=== PATIENT | male | born 1955 | race American Indian/Alaskan Native ===

== ENCOUNTER 2017-09-24 07:38 | Inpatient (IN) | payer MEDICARE ==
[~2017-09-24] VITALS: Ht 193 cm; Wt 76.4 kg
[~2017-09-24 07:38] MED LIST: ALBIPROI INH; ALBU90OI6 INH; ALPR.25 PO; ASPI325 PO; AZIT250 PO; BENZ100A PO; COMBIVENT RESPIM4 GM IH; DILT120 PO; DULERA 200 MCG/13 GM INH; FLUSAL2505 INH; GUAI600T33 PO; HYDACE7.5 PO; LEVFLO500 PO; NAPR500 PO; NICO21TP TOP; OXYC15ER PO; OXYC1TAB11 PO; OXYC5 PO; PRED10 PO; PRED20 PO; Roxicodone5 MG PO; TRAZ100 PO; Toprol Xl25 MG PO; Ventolin5 MG/1 ML INH
[2017-09-24 08:07] LABS: BASOPHILS ABSOLUTE AUTO 0.05 K/mm3 (0.00-0.23); BASOPHILS PERCENT AUTO 1 % (0-2); EOSINOPHILS ABSOLUTE AUTO 0.84 K/mm3 (0.00-0.68); EOSINOPHILS PERCENT AUTO 10 % (0-6); Hematocrit 46.1 % (37.0-53.0); Hemoglobin 15.4 g/dL (13.5-17.5); IMMATURE GRAN ABSOLUTE AUTO 0.02 K/mm3 (0.00-0.10); IMMATURE GRAN PERCENT AUTO 0 % (0-1); LYMPHOCYTES ABSOLUTE AUTO 1.46 K/mm3 (0.84-5.20); LYMPHOCYTES PERCENT AUTO 18 % (21-46); MONOCYTES ABSOLUTE AUTO 0.67 K/mm3 (0.16-1.47); MONOCYTES PERCENT AUTO 8 % (4-13); Mean Corpuscular HGB 31.7 pg (26.0-34.0); Mean Corpuscular HGB Conc 33.4 g/dL (31.5-36.5); Mean Corpuscular Volume 95 fL (80-100); Mean Platelet Volume 10.1 fL (9.1-12.4); NEUTROPHILS ABSOLUTE AUTO 5.11 K/mm3 (1.96-9.15); NEUTROPHILS PERCENT AUTO 63 % (41-73); Platelet Count 168 K/mm3 (150-400); RDW Coefficient Variation 13.2 % (11.7-14.2); RDW Standard Deviation 46.5 fL (35.1-46.3); Red Blood Cell Count 4.86 M/mm3 (4.30-5.90); White Blood Cell Count 8.15 K/mm3 (4.00-11.30)
[2017-09-24 08:25] LABS: Alanine Aminotransfer (ALT/SGP 33 U/L (12-78); Albumin, Blood 3.7 g/dL (3.4-5.0); Albumin/Globulin Ratio 1.2 (0.8-1.8); Alk Phos 91 U/L (50-136); Anion Gap 9 mmol/L (6-16); Aspartate Aminotrans (AST/SGOT 34 U/L (12-37); Bilirubin, Total 0.5 mg/dL (0.1-1.0); Blood Urea Nitrogen 10 mg/dL (8-24); Bun/Creatinine Ratio 12.6 (12.0-20.0); CO2, Blood 25 mmol/L (21-32); Calcium, Blood 8.4 mg/dL (8.5-10.1); Chloride, Blood 106 mmol/L (98-108); Creatinine, Blood 0.79 mg/dL (0.60-1.20); Globulin, Blood 3.2 g/dL (2.2-4.0); Glomerular Filtration Rate >60 (60-); Glucose, Blood 102 mg/dL (70-99); Potassium, Blood 4.3 mmol/L (3.5-5.5); Sodium, Blood 140 mmol/L (136-145); Total Protein, Blood 6.9 g/dL (6.4-8.2)
[2017-09-28] MEDS ORDERED: DILTIAZEM ER360 MG PO (10:11)
[2017-09-28] MEDS ORDERED: DULERA 200 MCG/13 GM INH (10:12)
[2017-09-28] MEDS ORDERED: OXYC5 PO (10:13)
[2017-09-28] MEDS ORDERED: ACET325 PO (10:14)
[2017-09-28] MEDS ORDERED: BUSP10 PO (10:15)
[2017-09-28] MEDS ORDERED: TUMS200 MG PO (10:18)
[2017-09-28] MEDS ORDERED: LEVO750 PO (10:18)
[2017-09-28] MEDS ORDERED: NAPR500 PO (10:20)
[2017-09-28] MEDS ORDERED: PANT40 PO (10:23)
== END 2017-09-28 12:41 | disposition home or self-care (01) | DRG 193 ==
LOC: ER 07:38 → MEDS 10:39 → ENPENDDIS 09-28 10:01 → MEDS 09-28 12:41
PROVIDERS: Emergency Medicine
DX: J18.9 Pneumonia, unspecified organism (principal); J96.01 Acute respiratory failure with hypoxia; J44.1 Chronic obstructive pulmonary disease with (acute) exacerbation; J44.0 Chronic obstructive pulmonary disease with (acute) lower respiratory infection; Z99.81 Dependence on supplemental oxygen; Z87.891 Personal history of nicotine dependence; G89.4 Chronic pain syndrome; F43.10 Post-traumatic stress disorder, unspecified; I48.0 Paroxysmal atrial fibrillation; F41.0 Panic disorder [episodic paroxysmal anxiety]; F41.9 Anxiety disorder, unspecified; Z79.82 Long term (current) use of aspirin
CPT/HCPCS: 36415; 71045; 80053; 83880; 84484; 85025; 93005; 93010; 94640; 94644; 94760; 94761; 96374; 96375; 99285-25; J1650; J1956; J2060; J2920; J2930

== ENCOUNTER 2018-10-16 18:56 | Inpatient (IN) | payer MEDICARE ==
[~2018-10-16] VITALS: Ht 182.9 cm; Wt 102.9 kg
[~2018-10-16 18:56] MED LIST changes: +ACET325 PO; +BUSP10 PO; +DILTIAZEM ER360 MG PO; +LEVO750 PO; +PANT40 PO; -TRAZ100 PO; +TUMS200 MG PO
[2018-10-16 19:18] LABS: PCO2 Arterial 83.6 mmHg (35-45); PO2 Arterial 361 mmHg (80-100); pH Blood Arterial 7.12 (7.35-7.45)
[2018-10-16 19:30] LABS: BASOPHILS PERCENT AUTO 1 % (0-2); EOSINOPHILS ABSOLUTE AUTO 0.48 K/mm3 (0.00-0.68); EOSINOPHILS PERCENT AUTO 6 % (0-6); Hematocrit 45.3 % (37.0-53.0); Hemoglobin 13.1 g/dL (13.5-17.5); IMMATURE GRAN ABSOLUTE AUTO 0.02 K/mm3 (0.00-0.10); IMMATURE GRAN PERCENT AUTO 0 % (0-1); LYMPHOCYTES ABSOLUTE AUTO 3.38 K/mm3 (0.84-5.20); LYMPHOCYTES PERCENT AUTO 44 % (21-46); MONOCYTES ABSOLUTE AUTO 0.74 K/mm3 (0.16-1.47); MONOCYTES PERCENT AUTO 10 % (4-13); Mean Corpuscular HGB 24.6 pg (26.0-34.0); Mean Corpuscular HGB Conc 28.9 g/dL (31.5-36.5); Mean Corpuscular Volume 85 fL (80-100); Mean Platelet Volume 10.4 fL (9.1-12.4); NEUTROPHILS ABSOLUTE AUTO 3.05 K/mm3 (1.96-9.15); NEUTROPHILS PERCENT AUTO 39 % (41-73); Platelet Count 363 K/mm3 (150-400); RDW Coefficient Variation 15.5 % (11.7-14.2); RDW Standard Deviation 47.9 fL (35.1-46.3); Red Blood Cell Count 5.32 M/mm3 (4.30-5.90); White Blood Cell Count 7.77 K/mm3 (4.00-11.30)
[2018-10-16 19:45] LABS: Alanine Aminotransfer (ALT/SGP 29 U/L (12-78); Albumin, Blood 3.6 g/dL (3.4-5.0); Alk Phos 81 U/L (50-136); Anion Gap 3 mmol/L (6-16); Aspartate Aminotrans (AST/SGOT 21 U/L (12-37); Bilirubin, Total 0.2 mg/dL (0.1-1.0); Blood Urea Nitrogen 10 mg/dL (8-24); Bun/Creatinine Ratio 7.6 (12.0-20.0); CO2, Blood 28 mmol/L (21-32); Calcium, Blood 8.7 mg/dL (8.5-10.1); Chloride, Blood 110 mmol/L (98-108); Creatinine, Blood 1.31 mg/dL (0.60-1.20); Globulin, Blood 3.5 g/dL (2.2-4.0); Glomerular Filtration Rate 58 (60-); Glucose, Blood 162 mg/dL (70-99); Potassium, Blood 5.8 mmol/L (3.5-5.5); Sodium, Blood 141 mmol/L (136-145); Total Protein, Blood 7.1 g/dL (6.4-8.2); Troponin I <0.015 ng/mL (0.000-0.040)
[2018-10-16] MEDS ORDERED: Roxicodone15 MG PO (20:12)
[2018-10-16 21:12] LABS: U Amphetamine Screen Not Detected; U Barbituate Screen Not Detected; U Benzodiazapine Screen Not Detected; U Buprenorphine Screen Not Detected; U Cannabinoids Screen DETECTED; U Cocaine Screen Not Detected; U Methadone Screen Not Detected; U Methamphetamine Screen Not Detected; U Opiates Screen Not Detected; U Oxycodone Screen DETECTED; U Phencyclidine Screen Not Detected; U Propoxyphene Screen Not Detected
--- NOTE | 2018-10-16 22:15 | NUR ---
ADMIT RECEIVED FROM ER VIA GURNEY. INTUBATED- AC 18, TV 450, PEEP 5, FIO2 40%. RESP RATE MID-20s TO 30s. SEDATED WITH PROPOFOL AT 10MCG/KG/MIN. OPENS EYES TO STIMULI. MOVES EXTREMITIES, BUT NOT FOLLOWING COMMANDS AT THIS TIME. TEJAS, 2MM. BILATERAL SOFT WRIST RESTRAINTS IN PLACE TO PREVENT SELF-EXTUBATION. MONITOR SHOWS AFLUTTER, RATE 110-120s. UNABLE TO OBTAIN BP AT THIS TIME. TEMP 100.4F VIA CHAVIS TEMP PROBE. OG CLAMPED. CHAVIS PATENT AND DRAINING SCANT CLOUDY YELLOW URINE. SEE ADMIT ASSESSMENT FOR FULL ASSESSMENT.
[2018-10-16 22:59] LABS: PCO2 Arterial 45.7 mmHg (35-45); PO2 Arterial 96.2 mmHg (80-100); pH Blood Arterial 7.28 (7.35-7.45)
--- NOTE | 2018-10-16 23:15 | NUR ---
AGITATION/BP/CRITICAL LABS CALL TO BRIEN CARO NP, REGARDING INCREASED AGITATION- NEW ORDER RECEIVED FOR ATIVAN IV AT THIS TIME. ALSO NOTIFIED OF CONTINUED HYPOTENSION AND CRITICAL LACTIC ACID RESULT- NEW ORDER RECEIVED FOR FLUID BOLUS.
[2018-10-16 23:20] LABS: Source, Urine Catheter
[2018-10-16 23:24] LABS: Appearance, Urine Cloudy (Clear); Bilirubin, Urine Neg (Neg); Blood, Urine 1+ (Neg); Color, Urine Yellow (P-Yellow); Glucose Qualitative, Urine Neg (Neg); Ketones, Urine 1+ (Neg); Leukocyte Esterase, Urine Neg (Neg); Nitrite, Urine Neg (Neg); Protein, Urine 1+ (Neg); Specific Gravity, Urine 1.025 (1.003-1.022); Urobilinogen, Urine NORM (Normal)
[2018-10-16 23:32] LABS: Amorphous Heavy (0-Heavy); Bacteria Not Seen /hpf; Red Blood Cells, Urine 0-2 /hpf (0-2); Squamous Epithelial Cells Not Seen /hpf (Few); White Blood Cells, Urine 0-2 /hpf (0-5)
[2018-10-16 23:54] LABS: White Blood Cells Urine 0-2 /hpf (0-5)
[2018-10-17 00:39] LABS: Troponin I 0.102 ng/mL (0.000-0.040)
[2018-10-17 00:42] LABS: Thyroid Stimulating Hormone 0.871 uIU/mL (0.360-4.800)
[2018-10-17 00:48] LABS: Calcium, Blood 7.5 mg/dL (8.5-10.1); Creatinine, Blood 1.74 mg/dL (0.60-1.20); Potassium, Blood 7.2 mmol/L (3.5-5.5)
--- NOTE | 2018-10-17 01:01 | NUR ---
NARCAN NARCAN 0.4MG IV GIVEN AT THIS TIME PER ORDER. NO RESPONSE NOTED.
--- NOTE | 2018-10-17 01:43 | NUR ---
HYPOTENSION/CALL TO MD DR. TOMAS NOTIFIED OF CONTINUED HYPOTENSION, AFLUTTER RATE 50s, SCANT URINE OUTPUT, AND CRITICAL HIGH POTASSIUM. NEW ORDERS RECEIVED FOR DOPAMINE IVT AND FOR A LR 1L BOLUS X 1.
[2018-10-17 02:30] LABS: Adenovirus Not Detected (NOT DETECT); Bordetella pertussis Not Detected (NOT DETECT); Chlamydophila pneumoniae Not Detected (NOT DETECT); Coronavirus 229E Not Detected (NOT DETECT); Coronavirus HKU1 Not Detected (NOT DETECT); Coronavirus NL63 Not Detected (NOT DETECT); Coronavirus OC43 Not Detected (NOT DETECT); Human Metapneumovirus Not Detected (NOT DETECT); Human Rhinovirus/Enterovirus Not Detected (NOT DETECT); Influenza A Not Detected (NOT DETECT); Influenza A/2009-H1 Not Detected (NOT DETECT); Influenza A/H1 Not Detected (NOT DETECT); Influenza A/H3 Not Detected (NOT DETECT); Influenza B Not Detected (NOT DETECT); Mycoplasma pneumoniae Not Detected (NOT DETECT); Parainfluenza Virus 1 Not Detected (NOT DETECT); Parainfluenza Virus 2 Not Detected (NOT DETECT); Parainfluenza Virus 3 Not Detected (NOT DETECT); Parainfluenza Virus 4 Not Detected (NOT DETECT); Respiratory Syncytial Virus Not Detected (NOT DETECT)
[2018-10-17 05:01] LABS: PCO2 Arterial 43.2 mmHg (35-45); PO2 Arterial 80.7 mmHg (80-100)
[2018-10-17 05:38] LABS: BASOPHILS ABSOLUTE AUTO 0.01 K/mm3 (0.00-0.23); BASOPHILS PERCENT AUTO 0 % (0-2); EOSINOPHILS ABSOLUTE AUTO 0.02 K/mm3 (0.00-0.68); EOSINOPHILS PERCENT AUTO 0 % (0-6); Hematocrit 40.6 % (37.0-53.0); Hemoglobin 11.9 g/dL (13.5-17.5); IMMATURE GRAN ABSOLUTE AUTO 0.04 K/mm3 (0.00-0.10); IMMATURE GRAN PERCENT AUTO 1 % (0-1); LYMPHOCYTES ABSOLUTE AUTO 0.41 K/mm3 (0.84-5.20); LYMPHOCYTES PERCENT AUTO 7 % (21-46); MONOCYTES ABSOLUTE AUTO 0.17 K/mm3 (0.16-1.47); MONOCYTES PERCENT AUTO 3 % (4-13); Mean Corpuscular HGB 24.8 pg (26.0-34.0); Mean Corpuscular HGB Conc 29.3 g/dL (31.5-36.5); Mean Corpuscular Volume 85 fL (80-100); Mean Platelet Volume 10.1 fL (9.1-12.4); NEUTROPHILS PERCENT AUTO 89 % (41-73); Platelet Count 250 K/mm3 (150-400); RDW Coefficient Variation 15.6 % (11.7-14.2); RDW Standard Deviation 49.3 fL (35.1-46.3); Red Blood Cell Count 4.79 M/mm3 (4.30-5.90); White Blood Cell Count 6.15 K/mm3 (4.00-11.30)
[2018-10-17 06:11] LABS: Albumin, Blood 2.9 g/dL (3.4-5.0); Bilirubin, Total 0.6 mg/dL (0.1-1.0); Bun/Creatinine Ratio 9.9 (12.0-20.0); Calcium, Blood 7.9 mg/dL (8.5-10.1); Creatinine, Blood 1.51 mg/dL (0.60-1.20); Total Protein, Blood 5.9 g/dL (6.4-8.2)
--- NOTE | 2018-10-17 06:11 | NUR ---
SHIFT SUMMARY NO ACUTE CHANGES DURING NOC. REMAINS INTUBATED- AC 18, TV 450, PEEP 5, FIO2 40%. SEDATED WITH PROPOFOL BETWEEN 10-15MCG/KG/MIN DURING SHIFT. OPENS EYES TO VERBAL STIMULI. MOVES ALL EXTREMITIES, BUT NOT FOLLOWING COMMANDS. BILATERAL SOFT WRIST RESTRAINTS REMAIN IN PLACE TO PREVENT SELF-EXTUBATION. NOW INFUSING @ 15MCG/KG/MIN. MEDICATED WITH ATIVAN 1MG IV X 2 DOSES AN ADJUNCT TO SEDATION. REMAINS IN AFLUTTER, RATE 50-60s. BP STABLE WITH DOPAMINE @ 5MCG/KG/MIN. TMAX 100.4F. OG TO LIS WITH SCANT LIGHT BROWN DRAINAGE. CHAVIS PATENT AND DRAINING CLOUDY YELLOW URINE. PAS TO BLE. NS INFUSING @ 100CC/HR PER ORDER. WILL REPORT TO DAY SHIFT RN WHEN AVAILABLE.
--- NOTE | 2018-10-17 07:27 | NUR ---
ASSUMED CARE OF PT. PT IS SEDATED WITH PROPOFOL @ 15MCG/KG/MIN. PT STARTING TO BE AGITATED, PT DOES OPENS EYES TO VOICE. FOLLOWING A FEW SIMPLE COMMANDS. INCREASED PROPOFOL DRIP TO 20MCG/KG/MIN. HR IN THE 120s. DOPAMINE DRIP DECREASED FROM 5MCG/KG/MIN TO 4MCG/KG/MIN. PT IS VENTED AND INTUBATED.
--- NOTE | 2018-10-17 07:57 | NUR ---
DR. HERNANDEZ CAME BY TO SEE PATIENT. UPDATED HIM OF PT'S CONDITION. ORDERS RECEIVED.
--- NOTE | 2018-10-17 08:43 | NUR ---
PT SEEN BY DR. TOMAS, UPDATED HIM OF PT'S STATUS. DECREASED PROPOFOL DRIP TO 10MCG/KG/MIN DUE TO SBT WHICH WAS STARTED AT THIS TIME BY DR. TOMAS. 12/28 SETTINGS.
--- NOTE | 2018-10-17 08:53 | NUR ---
TURNED OFF PROPOFOL AT THIS TIME. STILL TOLERATING SBT. SORAYA RT WAS NOTIFIED ABOUT THE SBT.
--- NOTE | 2018-10-17 09:22 | NUR ---
SAGRARIO DINING ROOM CAPTAIN AT BEDSIDE DOING ECHOCARDIOGRAM. PT STILL ON SBT SLOWLY WAKING UP.
--- NOTE | 2018-10-17 10:06 | NUR ---
PT EXTUBATED @ 1000. PLACED OF 3 LPM NC. TOLERATING OFF THE VENT. RESTRAINTS DISCONTINUED.
--- NOTE | 2018-10-17 12:46 | NUR ---
PT WAS SEEN BY DR. SHOOK @ 3843. UPDATED HIM OF PT'S STATUS. [facility] PT IS ONLY ALLOWED ICE CHIPS FOR NOW UNTIL PT'S REC[facility]DS [facility] ARRIVES. POSSIBLE CATH TODAY. PORCEDURE WAS EXPLAINED BY DR. SHOOK.
--- NOTE | 2018-10-17 14:45 | NUR ---
PT WAS TAKEN TO THE MEDICAL LABORATORY TECHNICIAN AT THIS TIME FOR CORONARY ANGIOGRAM
[2018-10-17] MEDS ORDERED: ALBU2.5V5 INH (15:01)
[2018-10-17] MEDS ORDERED: ALBU90OI61 INH (15:04)
[2018-10-17] MEDS ORDERED: OMEP20ER PO (15:07)
[2018-10-17] MEDS ORDERED: DABI150C PO (15:10)
[2018-10-17] MEDS ORDERED: FURO20 PO (15:15)
[2018-10-17] MEDS ORDERED: HYDPAM50 PO (15:16)
[2018-10-17] MEDS ORDERED: METO100ER PO (15:17)
[2018-10-17] MEDS ORDERED: STRIVERDI RESPIM4 GM INH (15:18)
[2018-10-17] MEDS ORDERED: POTA10T PO (15:19)
[2018-10-17] MEDS ORDERED: [UNRECOGNIZED DRUG - OTHER] TOP (15:20)
[2018-10-17] MEDS ORDERED: PRED20 PO (15:27)
--- NOTE | 2018-10-17 15:41 | NUR ---
PT BACK FROM THE BRIM POUNCER. R RADIAL ACCESS WITH 13 CC AIR INFLATED. PULSES ARE PALPABLE. FOLLOWING COMMANDS. NO HEMATOMA, BLEEDING OR BRUISES NOTED. NO INTERVENTIONS DONE. AFEBRILE.
[2018-10-17 16:20] LABS: BASOPHILS PERCENT AUTO 0 % (0-2); EOSINOPHILS PERCENT AUTO 0 % (0-6); Hematocrit 37.5 % (37.0-53.0); Hemoglobin 11.3 g/dL (13.5-17.5); IMMATURE GRAN ABSOLUTE AUTO 0.03 K/mm3 (0.00-0.10); IMMATURE GRAN PERCENT AUTO 0 % (0-1); LYMPHOCYTES ABSOLUTE AUTO 0.64 K/mm3 (0.84-5.20); LYMPHOCYTES PERCENT AUTO 6 % (21-46); MONOCYTES ABSOLUTE AUTO 0.26 K/mm3 (0.16-1.47); MONOCYTES PERCENT AUTO 3 % (4-13); Mean Corpuscular HGB 24.9 pg (26.0-34.0); Mean Corpuscular HGB Conc 30.1 g/dL (31.5-36.5); Mean Corpuscular Volume 83 fL (80-100); Mean Platelet Volume 10.5 fL (9.1-12.4); NEUTROPHILS ABSOLUTE AUTO 9.47 K/mm3 (1.96-9.15); NEUTROPHILS PERCENT AUTO 91 % (41-73); Platelet Count 269 K/mm3 (150-400); RDW Coefficient Variation 15.5 % (11.7-14.2); RDW Standard Deviation 47.2 fL (35.1-46.3); Red Blood Cell Count 4.53 M/mm3 (4.30-5.90)
[2018-10-17 16:42] LABS: Alanine Aminotransfer (ALT/SGP 222 U/L (12-78); Albumin, Blood 2.9 g/dL (3.4-5.0); Albumin/Globulin Ratio 1.1 (0.8-1.8); Alk Phos 68 U/L (50-136); Anion Gap 5 mmol/L (6-16); Aspartate Aminotrans (AST/SGOT 201 U/L (12-37); Bilirubin, Total 0.3 mg/dL (0.1-1.0); Blood Urea Nitrogen 14 mg/dL (8-24); Bun/Creatinine Ratio 12.5 (12.0-20.0); CO2, Blood 26 mmol/L (21-32); Calcium, Blood 7.9 mg/dL (8.5-10.1); Chloride, Blood 111 mmol/L (98-108); Creatinine, Blood 1.12 mg/dL (0.60-1.20); Globulin, Blood 2.6 g/dL (2.2-4.0); Glomerular Filtration Rate >60 (60-); Glucose, Blood 167 mg/dL (70-99); Magnesium, Blood 2.2 mg/dL (1.6-2.4); Phosphorus, Blood 2.3 mg/dL (2.5-4.9); Potassium, Blood 4.1 mmol/L (3.5-5.5); Sodium, Blood 142 mmol/L (136-145); Total Protein, Blood 5.5 g/dL (6.4-8.2)
--- NOTE | 2018-10-17 18:37 | NUR ---
SHIFT SUMMARY: PT IS ON 2LPM NC. PT WAS EXTUBATED THIS MORNING AT 10AM TODAY. PT WAS TAKEN TO THE BALL ENDER FOR CORONARY ANGIOGRAM. R RADIAL SITE ACCESS. STARTED DEFLATING 2CC AIR FROM TR BAND AT THIS TIME. PT IS STILL ON AMIODARONE DRIP @ 1MG/MIN FOR 6 HOURS THEN 0.5MG/MIN FOR 18 HOURS THEN DC. HR IN THE 80s-90s. DOPAMINE DRIP OFF AT THIS TIME. PT WAS MEDICATED FOR PAIN WITH OXYCODONE. PT DID NOT HAVE ANY DIFFICULTIES CHEWING HIS FOOD. AFEBRILE.
--- NOTE | 2018-10-17 21:22 | NUR ---
ASSUMED CARE OF PT, REPORT RCV'D FROM DM BABB. PT ALERT/ORIENTED. PT CONSITENTLY USING CALL LIGHT TO ASK FOR MORE NARCOTICS AND WHEN TOLD THAT HE WAS ALREADY GIVEN HIS PRESCRIBED AMOUNT PT BEGAN ASKING FOR "NARCAN" TO "DETOX". PT C/O LEFT ARM PAIN FROM OLD LOGGING ACCIDENT. AMIODORONE @1 MG/MIN. LUNG SOUNDS CLEAR/DIM, 2L NC WITH SATS IN LOW 90'S. PT HAS GOOD APPETITE AND NO DIFFICULTY EATING/SWALLOWING. SEE FULL SHIFT ASSESSMENT.
--- NOTE | 2018-10-17 21:55 | NUR ---
PT REFUSING REPOSITIONING. COMPLAINS THAT THE AIR CONDITIONING ISN'T COOL ENOUGH (BROUGHT HIM A FAN). PT INTENTIONALLY KNOCKED URINAL OVER SPILLING URINE. PT PULLED SPO2 STICKER OFF, PT REMINDED THAT HE HAS A RADIAL SITE AND THAT IT IS IMPORTANT THAT WE MONITOR HIM.
--- NOTE | 2018-10-17 22:31 | NUR ---
STATUS CHANGE: SPOKE WITH DR. TOMAS ABOUT POSSIBLE STATUS CHANGE FOR THIS PT. DR. TOMAS OK'D TRANSFER TO MED W/ TELE, BUT PT ON AMIODARONE GTT. SO PT CHANGED TO PCU STATUS.
[2018-10-18 03:48] LABS: Hematocrit 33.1 % (37.0-53.0); Hemoglobin 10.1 g/dL (13.5-17.5); Mean Corpuscular HGB 24.9 pg (26.0-34.0); Mean Corpuscular HGB Conc 30.5 g/dL (31.5-36.5); Mean Corpuscular Volume 82 fL (80-100); Mean Platelet Volume 10.4 fL (9.1-12.4); Platelet Count 236 K/mm3 (150-400); RDW Coefficient Variation 15.8 % (11.7-14.2); RDW Standard Deviation 47.4 fL (35.1-46.3); Red Blood Cell Count 4.06 M/mm3 (4.30-5.90); White Blood Cell Count 10.85 K/mm3 (4.00-11.30)
[2018-10-18 04:08] LABS: Magnesium, Blood 1.9 mg/dL (1.6-2.4)
[2018-10-18 04:09] LABS: Alanine Aminotransfer (ALT/SGP 177 U/L (12-78); Albumin, Blood 2.8 g/dL (3.4-5.0); Alk Phos 60 U/L (50-136); Anion Gap 6 mmol/L (6-16); Aspartate Aminotrans (AST/SGOT 107 U/L (12-37); Bilirubin, Total 0.2 mg/dL (0.1-1.0); Blood Urea Nitrogen 17 mg/dL (8-24); Bun/Creatinine Ratio 15.2 (12.0-20.0); CO2, Blood 25 mmol/L (21-32); Calcium, Blood 8.5 mg/dL (8.5-10.1); Chloride, Blood 110 mmol/L (98-108); Creatinine, Blood 1.12 mg/dL (0.60-1.20); Globulin, Blood 2.7 g/dL (2.2-4.0); Glomerular Filtration Rate >60 (60-); Glucose, Blood 171 mg/dL (70-99); Potassium, Blood 4.1 mmol/L (3.5-5.5); Sodium, Blood 141 mmol/L (136-145); Total Protein, Blood 5.5 g/dL (6.4-8.2)
[2018-10-18 04:16] LABS: BAND PERCENT MAN 9 % (0-8); BASOPHILS PERCENT MAN 0 % (0-2); EOSINOPHILS PERCENT MAN 0 % (0-6); LYMPHOCYTES ABSOLUTE MAN 0.32 K/mm3 (0.84-5.20); LYMPHOCYTES PERCENT MAN 3 % (21-46); MONOCYTES ABSOLUTE MAN 0.32 K/mm3 (0.16-1.47); MONOCYTES PERCENT MAN 3 % (4-13); NEUTROPHILS ABSOLUTE MAN 10.19 K/mm3 (1.96-9.15); SEG NEUTROPHILS PERCENT MAN 85 % (41-73); TOTAL CELLS COUNTED 100
--- NOTE | 2018-10-18 06:11 | NUR ---
SHIFT SUMMARY PT ALERT AND ORIENTED ALL NIGHT. PT'S BEHAVIOR WAS DEMANDING, LABILE, DEMEANING, AND AGGRESSIVE T/O SHIFT. PT WAS NOT COOPERATIVE WITH CARE AND BECAME VERBALLY AGGRESSIVE IF HIS "NEEDS" WERE NOT IMMEDIATELY ATTENDED TOO. PT DEMANDS BREATHING TREATMENTS, OPIOIDS, ICE CREAM, AND ROOT BEER AND ABUSES CALL LIGHT PRIVILEGES. PATIENT WILL YELL FROM THE ROOM AND OFTEN REQUESTED TO SPEAK TO THE "CHARGE NURSE, DOCTOR IN CHARGE, OR CHARGE NURSE'S BOSS" IF HE FELT LIKE HE WAS NOT GETTING WHAT HE WANTED. PT WOULD THEN ON OCCASION APOLOGIZE FOR HIS BEHAVIOR BEFORE REVERTING BACK TO BEING AGGRESSIVE. PT HAD 465 ML DARK URINARY OUTPUT, 1 INCONTINENT, AND ONE "SPILLED". PT'S VSS. LUNG SOUNDS DIM WITH WHEEZES, PT INCREASINGLY SOB WITH EXERTION. SEE PREVIOUS NOTES FROM THIS SHIFT. WILL REPORT TO DAYSHIFT NURSE.
--- NOTE | 2018-10-18 07:56 | NUR ---
PRN ORDER FOR REZA/STAWBERRY ICE CREAM PER PT REQUEST.
--- NOTE | 2018-10-18 08:07 | NUR ---
0730-ASSUMED CARE OF THIS PT. PT IS ALERT AND ORIENTED MOST OF THE TIME. FORGETFUL AT TIMES. ACCESS SITE TO R RADIAL IS STABLE. PT IS STILL ON AMIODARONE DRIP @ 0.5MCG/MIN. PT IS IMPOLITE AND DEMANDING. PT IS REQUESTING FOR "MEAT" INFORMED HIM THAT WE ORDERED FOR MEAT. 10 MINS LATER PT CALLED AGAIN SAYING " I WANT MY MEAT." EXPLAINED TO HIM THAT IT WILL AT LEAST TAKE HALF AN HOUR TO GET THE FOOD FROM THE [facility]. PT ASKING FOR BUTTER, INFORMED HIM THAT HE HAS LOTS OF BUTTER ON HIS TRAY, HE ANSWERED " I DID NOT ASK YOUR OPINION."
--- NOTE | 2018-10-18 08:28 | NUR ---
BROUGHT IN PATIENT'S FOOD REQUEST.
--- NOTE | 2018-10-18 09:59 | NUR ---
09-SEEN BY DR. SHOOK. UPDATED HIM OF PT'S STATUS. INFORMED HIM PT'S RHYTHM HAS CONVERTED INTO SINUS. ORDERS RECEIVED. 45-SEEN BY DR. MARQUEZ. UPDATED HIM OF PT'S STATUS. ORDERS RECEIVED. EXPLAINED TO PT THAT HE WILL BE RECEIVING AMIODARONE PO, WILL STILL BE KEPT ON AMIODARONE DRIP FOR 2 HOURS THEN DC. THEN HE CAN WILL BE ABLE TO AMBULATE FREELY. EKG WAS DONE - ON [facility].
--- NOTE | 2018-10-18 11:00 | NUR ---
PT BACK IN BED. PT WAS ABLE TO SIT ON THE CHAIR FOR AT LEAST AN HOUR.
--- NOTE | 2018-10-18 12:13 | NUR ---
PT AMBULATED TO THE BATHROOM, PT HAD A SEVERE SHORTNESS OF BREATH WITH AMBULATION. PT IS ABLE TO TOLERATE WALKING FOR ABOUT [address] MARQUEZ WAS NOTIFIED REGARDING THIS. PT IS MORE WHEEZY THAN CRACKLES. ORDERS RECEIVED.
--- NOTE | 2018-10-18 13:53 | NUR ---
PT STATED THAT HE HAS BEEN VOIDING AFTER RECEIVING LASIX. PT STATED HIS BREATHING HAS IMPROVED AFTER RECEIVING IT.
--- NOTE | 2018-10-18 16:00 | NUR ---
ASKED PATIENT IF HE IS NOT ABLE TO MAKE DECISIONS FOR HIMSELF, CAN WE CONTACT FAMILY AND ASK THEM TO MAKE THE MEDICAL DECISIONS FOR HIM. PT HAS STATED THAT HE REPEATEDLY STATED THAT "[place]" TO BE THE HEALTH CARE PROXY. EXPLAINED TO HIM THAT HE NEEDS TO PUT THIS IN WRITING. WILL CALL PALLIATIVE CARE RN.
--- NOTE | 2018-10-18 16:14 | NUR ---
REPORT GIVEN TO DM CEJA IN PCU. PT WILL BE TRANSFERED TO ROOM PCU 8.
--- NOTE | 2018-10-18 16:31 | NUR ---
PT ARRIVED TO U 8 VIA WHEELCHAIR WITH POUNCER IN ATTENDENCE. GOT SITUATED IN BED, CALL LIIGHT IN REACH.
--- NOTE | 2018-10-18 17:00 | NUR ---
ASSUMED CARE OF PATIENT AT THIS TIME. PATIENT C/O BACK PAIN, WILL MEDICATE PER ORDER AND CONT TO MONITOR.
--- NOTE | 2018-10-18 18:48 | NUR ---
PATIENT RESTING QUIETLY WITH EYES CLOSED. HAS STATED HE NORMALLY TAKES HIS TRAZADONE LATER IN THE BOZENA. NO ACUTE CHANGES.
[2018-10-19 04:19] LABS: BASOPHILS ABSOLUTE AUTO 0.01 K/mm3 (0.00-0.23); BASOPHILS PERCENT AUTO 0 % (0-2); EOSINOPHILS PERCENT AUTO 0 % (0-6); Hematocrit 34.5 % (37.0-53.0); Hemoglobin 10.6 g/dL (13.5-17.5); IMMATURE GRAN ABSOLUTE AUTO 0.08 K/mm3 (0.00-0.10); IMMATURE GRAN PERCENT AUTO 1 % (0-1); LYMPHOCYTES ABSOLUTE AUTO 0.48 K/mm3 (0.84-5.20); LYMPHOCYTES PERCENT AUTO 4 % (21-46); MONOCYTES ABSOLUTE AUTO 0.59 K/mm3 (0.16-1.47); MONOCYTES PERCENT AUTO 4 % (4-13); Mean Corpuscular HGB 24.7 pg (26.0-34.0); Mean Corpuscular HGB Conc 30.7 g/dL (31.5-36.5); Mean Corpuscular Volume 80 fL (80-100); Mean Platelet Volume 10.9 fL (9.1-12.4); NEUTROPHILS ABSOLUTE AUTO 12.59 K/mm3 (1.96-9.15); NEUTROPHILS PERCENT AUTO 92 % (41-73); Platelet Count 246 K/mm3 (150-400); RDW Coefficient Variation 16.2 % (11.7-14.2); RDW Standard Deviation 47.8 fL (35.1-46.3); Red Blood Cell Count 4.29 M/mm3 (4.30-5.90); White Blood Cell Count 13.75 K/mm3 (4.00-11.30)
[2018-10-19 04:42] LABS: Alanine Aminotransfer (ALT/SGP 146 U/L (12-78); Albumin, Blood 3.1 g/dL (3.4-5.0); Albumin/Globulin Ratio 1.1 (0.8-1.8); Alk Phos 64 U/L (50-136); Anion Gap 7 mmol/L (6-16); Aspartate Aminotrans (AST/SGOT 65 U/L (12-37); Bilirubin, Direct <0.1 mg/dL (0.0-0.3); Bilirubin, Indirect Unable to Calculate mg/dL (0.1-0.7); Bilirubin, Total 0.3 mg/dL (0.1-1.0); Blood Urea Nitrogen 21 mg/dL (8-24); Bun/Creatinine Ratio 21.1 (12.0-20.0); CO2, Blood 27 mmol/L (21-32); Calcium, Blood 8.6 mg/dL (8.5-10.1); Chloride, Blood 108 mmol/L (98-108); Globulin, Blood 2.9 g/dL (2.2-4.0); Glomerular Filtration Rate >60 (60-); Glucose, Blood 152 mg/dL (70-99); Phosphorus, Blood 3.6 mg/dL (2.5-4.9); Potassium, Blood 4.2 mmol/L (3.5-5.5); Sodium, Blood 142 mmol/L (136-145)
--- NOTE | 2018-10-19 07:27 | NUR ---
SHIFT SUMMARY LYING IN HIGH FOWLERS WITH EYES OPEN. HAS RESTED WELL AND CONTINUES TO IMPROVE. SAFETY MEASURES IN PLACE. HAND OFF GIVEN TO Harsha RUBIN RN USING SBAR.
--- NOTE | 2018-10-19 09:12 | NUR ---
PT CONVERTED TO AFIB ISTRATE AWARE AND IN ROOM AT THIS TIME. PT A/O, HR 144, BP 135/76. DENIES ANY CP, PRESSURE. 0900 MEDICATIONS GIVEN, WILL CONTINUE TO MONITOR. PREFITTER MADE AWARE
--- NOTE | 2018-10-19 10:42 | NUR ---
PT CONVERTED BACK TO NSR AT 1020, DR. MEDLEYTRATE NOTIFIED. HR CURRENTLY 96, ALL OTHER VSS. PT DENIES CP/PRESSURE. WILL CTM.
--- NOTE | 2018-10-19 17:53 | NUR ---
AT 1652 PT CONVERTED TO A FLUTTER, HR 120'S. PT ASYMPTOMATIC, ALL OTHER VSS. DR. FINN NOTIFIED, ORDER TO GIVE 2100 DOSE OF AMIODARONE 400MG NOW. WILL GIVE AND CONTINUE TO MONITOR.
--- NOTE | 2018-10-19 19:31 | NUR ---
PT CONTINUES TO BE IN A FLUTTER, HR 130'S AT [address] FINN NOTIFIED, SEE NEW ORDER OF CARDIZEM. PT ASYMPTOMATIC, ALL OTHER VSS.
--- NOTE | 2018-10-19 19:33 | NUR ---
SUMMARY: SEE PREVIOUS NOTES FOR CARDIAC STATUS. PT ADMITTED FOR COPD EXAC. STABLE ON 2L VIA NC TODAY, SOB WITH EXERTION, DENIES SOB AT REST. PT A/O, 1 ASSIST WHEN UP. MEDICATED PER EMAR FOR CHRONIC BACK PAIN. PT CURRENTLY AFLUTTER, ASYMPTOMATIC. NOC RN RAVINDER AWARE AND PLAN TO GIVE PO CARDIZEM NOW.
--- NOTE | 2018-10-20 | NUR ---
PLACED ON BIPAP PER MD ORDER. ABLE TO TOLERATED AT THIS TIME AFTER ATIVAN GIVEN PER MD ORDERS. DENIES FURTHER NEEDS AT THIS TIME. WILL CONTINUE TO MONITOR.
[2018-10-20 05:51] LABS: BASOPHILS ABSOLUTE AUTO 0.01 K/mm3 (0.00-0.23); BASOPHILS PERCENT AUTO 0 % (0-2); EOSINOPHILS PERCENT AUTO 0 % (0-6); Hematocrit 33.5 % (37.0-53.0); Hemoglobin 10.2 g/dL (13.5-17.5); IMMATURE GRAN ABSOLUTE AUTO 0.04 K/mm3 (0.00-0.10); IMMATURE GRAN PERCENT AUTO 0 % (0-1); LYMPHOCYTES ABSOLUTE AUTO 0.59 K/mm3 (0.84-5.20); LYMPHOCYTES PERCENT AUTO 6 % (21-46); MONOCYTES ABSOLUTE AUTO 0.58 K/mm3 (0.16-1.47); MONOCYTES PERCENT AUTO 5 % (4-13); Mean Corpuscular HGB 24.8 pg (26.0-34.0); Mean Corpuscular HGB Conc 30.4 g/dL (31.5-36.5); Mean Corpuscular Volume 82 fL (80-100); Mean Platelet Volume 10.3 fL (9.1-12.4); NEUTROPHILS ABSOLUTE AUTO 9.49 K/mm3 (1.96-9.15); NEUTROPHILS PERCENT AUTO 89 % (41-73); Platelet Count 240 K/mm3 (150-400); RDW Coefficient Variation 16.1 % (11.7-14.2); Red Blood Cell Count 4.11 M/mm3 (4.30-5.90); White Blood Cell Count 10.71 K/mm3 (4.00-11.30)
[2018-10-20 06:17] LABS: Alanine Aminotransfer (ALT/SGP 124 U/L (12-78); Albumin/Globulin Ratio 1.1 (0.8-1.8); Alk Phos 62 U/L (50-136); Anion Gap 3 mmol/L (6-16); Aspartate Aminotrans (AST/SGOT 52 U/L (12-37); Bilirubin, Total 0.2 mg/dL (0.1-1.0); Blood Urea Nitrogen 28 mg/dL (8-24); Bun/Creatinine Ratio 28.5 (12.0-20.0); CO2, Blood 31 mmol/L (21-32); Calcium, Blood 8.4 mg/dL (8.5-10.1); Chloride, Blood 105 mmol/L (98-108); Creatinine, Blood 0.98 mg/dL (0.60-1.20); Globulin, Blood 2.8 g/dL (2.2-4.0); Glomerular Filtration Rate >60 (60-); Glucose, Blood 128 mg/dL (70-99); Sodium, Blood 139 mmol/L (136-145); Total Protein, Blood 5.8 g/dL (6.4-8.2)
--- NOTE | 2018-10-20 07:46 | NUR ---
SHIFT SUMMARY LYING IN HIGH FOWLERS WITH EYES OPEN WHILE WATCHING TV. RESTED POORLY THIS SHIFT, BUT HAS BEEN TRYING TO BE COMLIANT WITH WEARING BIPAP. HE IS VERY PROUD THAT HE IS ABLE TO PUT THE MASK ON BY HIMSELF. SAFETY MEASURES IN PLACE. HAND OFF GIVEN TO DAY NURSE USING SBAR.
--- NOTE | 2018-10-20 12:28 | NUR ---
REFUSED MORNING ASSESSMENT PT REFUSED MORNING ASSESSMENT. ATTEMPTED AGAIN ABOUT 1100. TALKED WITH DR MARQUEZ ABOUT UT. PT DID AGREE TO VITAL SIGNS THIS MORNING. BECAUSE "DOCOTRS AREN'T ABLE TO DO THEM." CONTINUE POT.
--- NOTE | 2018-10-20 18:49 | NUR ---
NOTE PT AWAKE AND ALERT. MILD BARROW ESPECIALLY IF THE TV IS ON. DOES NOT WANT TO TURN THE TV OFF WHEN DOCTORS OR STAFF ARE IN THE ROOM ANSWERING HIS CALLS. VSS. PT REFUSED DAILY ASSESSMENT X3 ASKS. HE FINALLY AGREED TO VS THIS EVENING. PT REQUESTING PAIN MEDICATION ABOVE AND BEYOND HIS ORDERS. TALKED WITH HIM AND HE SMOKES MARIJUANA TO AUGMENT HIS OXYCODONE. TRIED TO TALK TO KHARI BOUT SMOKING AND HIS LUNGS AND HE BECAME VERY ANGRY. CONTINUE POT.
--- NOTE | 2018-10-21 05:17 | NUR ---
SHIFT SUMMARY LYING IN HIGH FOWLERS WITH EYES OPEN WHILE WATCHING TV. RESTED POORLY THIS SHIFT, STATES THAT THIS IS HIS USUAL. QUICKLY BECOMES AGITATED WHEN ASKED ABOUT EFFECTIVENESS OF PAIN MEDS. STATES, "I CAN'T DEAL WITH THIS RIGHT NOW!" NURSING INSTRUCTED HIM TO CALM DOWN AND ANSWER THE QUESTION. HE ATTEMPTED TO CALM HIMSELF. STATES THAT HE WILL TRY TO DO BETTER WITH HIS FRUSTRATION AND ANXIETY. SAFETY MEASURES IN PLACE. WILL GIVE HAND OFF TO ONCOMING SHIFT USING SBAR.
--- NOTE | 2018-10-21 08:42 | NUR ---
DR ANGULO HERE RECENTLTY TO SEE PT.
--- NOTE | 2018-10-21 17:59 | NUR ---
SHIFT SUMMARY PT EATING AND DRINKING. PT BEEN ASSISTED WITH ADL'S PRN. PT BEEN MED FOR PAIN. DR ANGULO HERE EARLIER TO SEE PT. DISCUSSED PAIN MGMT WITH PT. PT BECOMES SOB WITH ACTIVITY.
--- NOTE | 2018-10-22 05:27 | NUR ---
SHIFT SUMMARY PT A&O X4 T/O SHIFT. NO ACUTE CHAGES. VSS. 2L O2 VIA NC; CONT. OX IN PLACE; PT O2 SATS OVER 92% T/O SHIFT. WHEEZE NOTED T/O LUNGS; EVEN WOB; PT STS IMPROVED EASE OF RESP. TELEMETRY IN PLACE; A FIB PER SPRAY PAINTER HELPER. CHRONIC PAIN IN BACK, NECK, LUE/SHOULDER MANAGED PER EMAR. PT DECLINED ICE/HEAT TO SITE. CALL LIGHT IN REACH; PT DEMONSTRATES USE. WCTM UNTIL REPORT TO DAY SHIFT RN.
--- NOTE | 2018-10-22 13:04 | NUR ---
TRANSFER TO RM 230 REPORT GIVEN TO IBAN CHAIDEZ. P[T TRANSFERED VIA W/C WITH OXYGEN. PT AGREEABLE TO MOVE. CONTINUE POT.
--- NOTE | 2018-10-22 13:26 | NUR ---
PT RECENTLY TO ROOM 230. REPORT BEEN GIVEN FROM BAKERY MACHINE MECHANIC. THIS RN ASSUMING CARE OF PT AT THIS TIME.
--- NOTE | 2018-10-22 18:00 | NUR ---
SHIFT SUMMARY PT TRANSFER TO 230 TODAY. PT BEEN ASSISTED WITH ADL'S PRN. PT AMBULATED IN HALLWAY EARLIER TODAY. PT USING CALL LIGHT APPR. PT BEEN MED FOR PAIN PRN AND ORDERED.
--- NOTE | 2018-10-22 19:40 | NUR ---
0: PT REQUEST STAFFING CHANGE AND THIS RN ASSUMES CARE PRIMARY RN FOR NOC. PT CONCERNS ADDRESSED AND PT IS AGREEABLE TO RN PLANNING OF CARE FOR SHIFT AFTER CLARIFICATION OF PRN PAIN MED SCHEDULE PT PREFERS. PT GIVEN PORTABLE OXYGEN TANK SO THAT HE MAY AMBULATE HALLS INDEPENDENTLY; STEADY ON FEET AND IND IN ROOM.
[2018-10-23 06:39] LABS: Hematocrit 38.3 % (37.0-53.0); Hemoglobin 11.6 g/dL (13.5-17.5); Mean Corpuscular HGB 25.1 pg (26.0-34.0); Mean Corpuscular HGB Conc 30.3 g/dL (31.5-36.5); Mean Corpuscular Volume 83 fL (80-100); Mean Platelet Volume 10.8 fL (9.1-12.4); NRBC ABSOLUTE 0.03 K/mm3 (0.00-0.02); NRBC Auto 0.3 /100 WBC (0.0-0.2); Platelet Count 233 K/mm3 (150-400); RDW Coefficient Variation 15.9 % (11.7-14.2); RDW Standard Deviation 47.8 fL (35.1-46.3); Red Blood Cell Count 4.63 M/mm3 (4.30-5.90); White Blood Cell Count 11.78 K/mm3 (4.00-11.30)
[2018-10-23 07:16] LABS: Alanine Aminotransfer (ALT/SGP 95 U/L (12-78); Albumin, Blood 3.1 g/dL (3.4-5.0); Albumin/Globulin Ratio 1.1 (0.8-1.8); Alk Phos 65 U/L (50-136); Anion Gap 6 mmol/L (6-16); Aspartate Aminotrans (AST/SGOT 35 U/L (12-37); Bilirubin, Total 0.3 mg/dL (0.1-1.0); Blood Urea Nitrogen 29 mg/dL (8-24); Bun/Creatinine Ratio 27.6 (12.0-20.0); CO2, Blood 30 mmol/L (21-32); Calcium, Blood 8.1 mg/dL (8.5-10.1); Chloride, Blood 104 mmol/L (98-108); Creatinine, Blood 1.05 mg/dL (0.60-1.20); Globulin, Blood 2.7 g/dL (2.2-4.0); Glomerular Filtration Rate >60 (60-); Glucose, Blood 90 mg/dL (70-99); Potassium, Blood 4.3 mmol/L (3.5-5.5); Sodium, Blood 140 mmol/L (136-145); Total Protein, Blood 5.8 g/dL (6.4-8.2)
--- NOTE | 2018-10-23 08:50 | NUR ---
ROUNDING: IN TO SEE PATIENT. PLAN FOR POSSIBLE DC HOME TOMORROW. PT REMAINS ON RA AT THIS TIME. DYSPNE A WITH EXERTION. AWAITING HOME O2 EVAL.
--- NOTE | 2018-10-23 17:49 | NUR ---
PT HAS BEEN STABLE THIS SHIFT. PT HAS REMAINED ON RA THROUGHOUT THE DAY. PT ABLE TO AMBULATE INDEP TO BATHROOM AND HALLWAY. DYSPNEA ON EXERTION. EXP WHEEZES THROUGHOUT.AWAITING HOME O2 EVAL, HOWEVER ALREADY HAS O2 SET UP AT HOME. POSSIBLE DC HOME TOMORROW. POWERGLIDE SL. CONT SCHEDULED AND PRN PAIN MEDS FOR CHRONIC PAIN. SOLO DIET. CALLS APPROPRIATELY WITH CALL LIGHT.
--- NOTE | 2018-10-24 07:14 | NUR ---
SUMMARY NO ACUTE CHANGES NOTED THROUGH THE NIGHT. PT REMIANS A&O, IN DEPENDENT IN THE ROOM, PAIN MANAGED PRN PER EMAR. O2 SATS STABLE ON ROOM AIR. 2 L PER NC WHILE SLEEPING. CALL LIGHT IN SLEEP. PT CALLS PRN
--- NOTE | 2018-10-24 11:19 | NUR ---
PT IRRITABLE THAT MEDICATIONS NOT GIVEN THIRTY MIN BEFORE BREAKFAST LIKE HE REPORTS HE DOES AT HOME AND ASKED TO SPEAK TO NURSING SOIL FERTILITY EXTENSION SPECIALIST. MEDS GIVEN AT 0740 PER REQUEST. SOIL FERTILITY EXTENSION SPECIALIST AUREA PRESENT TO SEE PT AT ABOUT 1045.
[2018-10-24] MEDS ORDERED: Pacerone400 MG PO (11:40)
[2018-10-24] MEDS ORDERED: FLUTICASONE-SA1 EAC2 INH (11:45)
--- NOTE | 2018-10-24 14:31 | NUR ---
DISCHARGE: SPOKE WITH RT MOSES TO BE CERTAIN THAT PT IS PREPARED FOR USING 02 UPON DISCHARGE. PT TO USE 2L O2 ON PORTABLE, WHICH IS PT BASELINE, PT VERBALIZED UNDERSTANDING. DISCHARGE INFO AND PACKET GIVEN. SADAF LOWE RN CALLED MEDS TO [facility]. PT ATE LUNCH AND SHOWERED BEFORE DC. LEFT UNIT VIA WC WITH FELECIA TURNER.
== END 2018-10-24 14:25 | disposition home or self-care (01) | DRG 871 ==
LOC: ER 18:56 → ICUE 20:22 → ICUW 20:22 → PCU 20:22 → ICUE 22:10 → PCU 10-18 16:30 → SURS 10-22 13:18
PROVIDERS: Emergency Medicine; Family Medicine; Internal Medicine; Internal Medicine Critical Care Medicine; Nurse Practitioner Acute Care; ADMIT Internal Medicine
PROC: 0BH17EZ Insertion of Endotracheal Airway into Trachea, Via Natural or Artificial Opening (ICD-10-PCS; principal; 2018-10-17)
PROC: 5A1935Z Respiratory Ventilation, Less than 24 Consecutive Hours (ICD-10-PCS; 2018-10-17)
PROC: 3E033XZ Introduction of Vasopressor into Peripheral Vein, Percutaneous Approach (ICD-10-PCS; 2018-10-17)
PROC: 4A023N7 Measurement of Cardiac Sampling and Pressure, Left Heart, Percutaneous Approach (ICD-10-PCS; 2018-10-17)
PROC: B211YZZ Fluoroscopy of Multiple Coronary Arteries using Other Contrast (ICD-10-PCS; 2018-10-17)
DX: A41.9 Sepsis, unspecified organism (principal); R65.21 Severe sepsis with septic shock; J96.22 Acute and chronic respiratory failure with hypercapnia; J96.21 Acute and chronic respiratory failure with hypoxia; J18.9 Pneumonia, unspecified organism; I50.41 Acute combined systolic (congestive) and diastolic (congestive) heart failure; N17.9 Acute kidney failure, unspecified; J44.0 Chronic obstructive pulmonary disease with (acute) lower respiratory infection; J44.1 Chronic obstructive pulmonary disease with (acute) exacerbation; I13.0 Hypertensive heart and chronic kidney disease with heart failure and stage 1 through stage 4 chronic kidney disease, or unspecified chronic kidney disease; I42.9 Cardiomyopathy, unspecified; I48.2 Chronic atrial fibrillation; Z79.01 Long term (current) use of anticoagulants; E87.5 Hyperkalemia; N18.3 Chronic kidney disease, stage 3 (moderate); G89.4 Chronic pain syndrome; F43.10 Post-traumatic stress disorder, unspecified; K80.20 Calculus of gallbladder without cholecystitis without obstruction; K21.9 Gastro-esophageal reflux disease without esophagitis
CPT/HCPCS: 0099U; 31500; 31720; 36415; 36600; 51702; 71045; 71046; 76705; 76770; 80048; 80053; 81001; 82248; 82330; 82550; 82570; 82803; 83605; 83735; 83880; 84100; 84145; 84300; 84443; 84484; 85025; 85027; 87040; 87070; 87106; 87205; 93005; 93010; 93458; 94002; 94003; 94640; 94644; 94660; 94664; 94760; 94762; 96365-59; 96366-59; 96367-59; 96368; 96375-59; 98960; 99152; 99291-25; 99292; A9270; C1751; C1769; C1894; C8923; C9113; J0282; J0330; J0456; J0610; J0696; J1265; J1644; J1650; J1815; J1940; J1956; J2060; J2250; J2310; J2543; J2704; J2920; J2930; J3010; J3370; J3475; J7030; J7050; J7060; J7070; J7120; J7512; J7799; Q9957; Q9967

== ENCOUNTER 2018-11-14 16:34 | Inpatient (IN) | payer OTHER, MEDICARE ==
[~2018-11-14] VITALS: Ht 182.9 cm; Wt 92.3 kg
[~2018-11-14 16:34] MED LIST changes: +ALBU2.5V5 INH; +ALBU90OI61 INH; +DABI150C PO; +FLUTICASONE-SA1 EAC2 INH; +FURO20 PO; +HYDPAM50 PO; +METO100ER PO; +OMEP20ER PO; +POTA10T PO; +Pacerone400 MG PO; +Roxicodone15 MG PO; +STRIVERDI RESPIM4 GM INH; +[UNRECOGNIZED DRUG - OTHER] TOP
[2018-11-14] MEDS ORDERED: DABI150C PO (17:02)
[2018-11-14] MEDS ORDERED: GABA300 PO (17:04)
[2018-11-14 19:42] LABS: BASOPHILS ABSOLUTE AUTO 0.03 K/mm3 (0.00-0.23); BASOPHILS PERCENT AUTO 1 % (0-2); EOSINOPHILS ABSOLUTE AUTO 0.48 K/mm3 (0.00-0.68); EOSINOPHILS PERCENT AUTO 11 % (0-6); Hemoglobin 13.1 g/dL (13.5-17.5); IMMATURE GRAN ABSOLUTE AUTO 0.01 K/mm3 (0.00-0.10); IMMATURE GRAN PERCENT AUTO 0 % (0-1); LYMPHOCYTES ABSOLUTE AUTO 1.13 K/mm3 (0.84-5.20); LYMPHOCYTES PERCENT AUTO 26 % (21-46); MONOCYTES ABSOLUTE AUTO 0.38 K/mm3 (0.16-1.47); MONOCYTES PERCENT AUTO 9 % (4-13); Mean Corpuscular HGB 24.5 pg (26.0-34.0); Mean Corpuscular HGB Conc 29.8 g/dL (31.5-36.5); Mean Corpuscular Volume 82 fL (80-100); Mean Platelet Volume 9.8 fL (9.1-12.4); NEUTROPHILS ABSOLUTE AUTO 2.25 K/mm3 (1.96-9.15); NEUTROPHILS PERCENT AUTO 53 % (41-73); Platelet Count 281 K/mm3 (150-400); RDW Coefficient Variation 18.6 % (11.7-14.2); RDW Standard Deviation 53.8 fL (35.1-46.3); Red Blood Cell Count 5.35 M/mm3 (4.30-5.90); White Blood Cell Count 4.28 K/mm3 (4.00-11.30)
[2018-11-14 19:59] LABS: Alanine Aminotransfer (ALT/SGP 24 U/L (12-78); Albumin, Blood 3.4 g/dL (3.4-5.0); Albumin/Globulin Ratio 1.1 (0.8-1.8); Alk Phos 78 U/L (50-136); Anion Gap 4 mmol/L (6-16); Aspartate Aminotrans (AST/SGOT 17 U/L (12-37); Bilirubin, Total 0.3 mg/dL (0.1-1.0); Blood Urea Nitrogen 9 mg/dL (8-24); Bun/Creatinine Ratio 8.4 (12.0-20.0); CO2, Blood 30 mmol/L (21-32); Calcium, Blood 8.9 mg/dL (8.5-10.1); Chloride, Blood 104 mmol/L (98-108); Creatinine, Blood 1.07 mg/dL (0.60-1.20); Globulin, Blood 3.2 g/dL (2.2-4.0); Glomerular Filtration Rate >60 (60-); Glucose, Blood 136 mg/dL (70-99); Potassium, Blood 4.7 mmol/L (3.5-5.5); Sodium, Blood 138 mmol/L (136-145); Total Protein, Blood 6.6 g/dL (6.4-8.2)
--- NOTE | 2018-11-15 06:01 | NUR ---
SHIFT SUMMARY PATIENT ADMITTED FROM ER. ABLE TO TRANSFER SELF FROM STRETCHER TO BED. ON 3 L NC. DYSPNEA ON EXERTION. REWUIRING MULTIPLE BREATHING TREATMENTS. PATIENT REQUESTING THATPAIN MEDICATIONS BE CHANGED TO 15MG EVERY 4-6 HOURS. NO ACUTE EVENTS.
--- NOTE | 2018-11-15 17:47 | NUR ---
SHIFT SUMMARY NO ACUTE CHANGES. PATIENT MEDICATED SEVERAL TIMES THIS SHIFT FOR PAIN. PRN OXYGEN 2L/NC WHEN SOB. PATIENT UP INDEPENDENT OR SBA IN THE ROOM. PATIENT NPO AT MIDNIGHT FOR ENDOSCOPY IN THE AM. CALL LIGHT IN REACH.
[2018-11-16 04:43] LABS: BASOPHILS ABSOLUTE AUTO 0.01 K/mm3 (0.00-0.23); BASOPHILS PERCENT AUTO 0 % (0-2); EOSINOPHILS PERCENT AUTO 0 % (0-6); Hematocrit 37.1 % (37.0-53.0); Hemoglobin 11.3 g/dL (13.5-17.5); IMMATURE GRAN ABSOLUTE AUTO 0.02 K/mm3 (0.00-0.10); IMMATURE GRAN PERCENT AUTO 0 % (0-1); LYMPHOCYTES ABSOLUTE AUTO 0.42 K/mm3 (0.84-5.20); LYMPHOCYTES PERCENT AUTO 5 % (21-46); MONOCYTES ABSOLUTE AUTO 0.27 K/mm3 (0.16-1.47); MONOCYTES PERCENT AUTO 3 % (4-13); Mean Corpuscular HGB 24.4 pg (26.0-34.0); Mean Corpuscular HGB Conc 30.5 g/dL (31.5-36.5); Mean Corpuscular Volume 80 fL (80-100); Mean Platelet Volume 10.3 fL (9.1-12.4); NEUTROPHILS ABSOLUTE AUTO 7.41 K/mm3 (1.96-9.15); NEUTROPHILS PERCENT AUTO 91 % (41-73); Platelet Count 247 K/mm3 (150-400); RDW Coefficient Variation 18.4 % (11.7-14.2); RDW Standard Deviation 52.8 fL (35.1-46.3); Red Blood Cell Count 4.63 M/mm3 (4.30-5.90); White Blood Cell Count 8.13 K/mm3 (4.00-11.30)
[2018-11-16 05:01] LABS: Alanine Aminotransfer (ALT/SGP 23 U/L (12-78); Albumin, Blood 3.2 g/dL (3.4-5.0); Albumin/Globulin Ratio 1.1 (0.8-1.8); Alk Phos 64 U/L (50-136); Anion Gap 6 mmol/L (6-16); Aspartate Aminotrans (AST/SGOT 14 U/L (12-37); Bilirubin, Total 0.2 mg/dL (0.1-1.0); Blood Urea Nitrogen 21 mg/dL (8-24); Bun/Creatinine Ratio 19.1 (12.0-20.0); CO2, Blood 28 mmol/L (21-32); Calcium, Blood 8.5 mg/dL (8.5-10.1); Chloride, Blood 103 mmol/L (98-108); Globulin, Blood 2.9 g/dL (2.2-4.0); Glomerular Filtration Rate >60 (60-); Glucose, Blood 134 mg/dL (70-99); Potassium, Blood 5.2 mmol/L (3.5-5.5); Sodium, Blood 137 mmol/L (136-145); Total Protein, Blood 6.1 g/dL (6.4-8.2)
--- NOTE | 2018-11-16 05:30 | NUR ---
SHIFT SUMMARY RECEIVED CALL FROM GI DR. REQUESTING THAT THE HOSPITALIST BE MADE AWARE THAT THE PATIENTS HR WAS TACHY (120S) AND THAT THE BLOOD PRESSURE WAS 90S/50S. RECHECKED THE BLOOD PRESSURE AND PATIENT WAS 119/74 WITH HR 112. SPOKE TO DR. ABRAMS AND INFORMED HIM THAT THE GI DR WOULD NOT BE ABLE TO PERFORM THE ENDOSCOPY IF THE PATIENTS VITAL SIGNS WERE NOT CORRECTED. RECEIVED ORDERS FOR A NS BOLUS. BOLUS GIVEN AND WHEN RECHECKED BLOOD PRESSURE 101/70'S AND HEART RATE 92. PATIENT OUTSIDE MULTIPLE TIME THROUGHOUT THE NIGHT. OBSERVED PATIENT WALKING AROUND UNIT WITH NO S/S OF DYSPNWEA AND ON ROOM AIR. PATIENT NPO AT MIDNIGHT.WILL CONTINUE TO MONITOR.
--- NOTE | 2018-11-16 08:13 | NUR ---
Ambulatory in Day Surgery TRANSFERS FROM BED TO RNEY IN ROOM, DYSPNEA NOTED WITH ACTIVITY. INSP/EXP WHEEZES BILAT WITH AUSCULTATION, LAST UDN 0600, AFIB ON MONITOR. History, Chart, Medications and Allergies reviewed before start of procedure.Patient confirms NPO status and agrees with scheduled surgery.
--- NOTE | 2018-11-16 08:24 | NUR ---
PT HAS NOT DENTURES IN MOUTH, NO HEARING AIDS, NO GLASSES. STATES "THEY'RE OUT" DO NOT KNOW IF PT HAS POSSESSION OF THESE ITEMS AT [facility].
--- NOTE | 2018-11-16 08:31 | NUR ---
11/16/18 0831 Raul Palafox 3-LEAD EKG REVIEWED WITH PHYSICIAN PRIOR TO START OF PROCEDURE.PATIENT CONFIRMS NPO STATUS AND AGREES WITH SCHEDULED PROCEDURE.History, Chart, Medications and Allergies reviewed before start of procedure. MONITOR INTACT WITH CONTINUOUS PULSE OXIMETRY AND INTERMITTENT BP. O2 VIA N/C INTACT THROUGHOUT SEDATION/PROCEDURE. Bite Block Placed
[2018-11-16] MEDS ORDERED: Culturelle1 CAP PO (16:05)
[2018-11-16] MEDS ORDERED: AZIT250 PO (16:05)
[2018-11-16] MEDS ORDERED: MIRALAX17 GM PO (16:08)
[2018-11-16] MEDS ORDERED: SUCR1 PO (16:09)
[2018-11-16] MEDS ORDERED: PRED20 PO (16:10)
[2018-11-16] MEDS ORDERED: Prednisone10 MG PO ×2 (16:11→16:14)
--- NOTE | 2018-11-16 16:43 | NUR ---
DISCHARGED PER JOSE ROBERTO RICHARD RN
[2018-11-21 11:13] LABS: Performing Lab SYMBIODX; Test Name HER2 FISH
[2018-11-28 18:54] LABS: Result SEE PATHOTH RESULTS
== END 2018-11-16 17:48 | disposition home or self-care (01) | DRG 392 ==
LOC: ER 16:34 → MEDS 16:35
PROVIDERS: Emergency Medicine; Family Medicine; Internal Medicine Gastroenterology; ADMIT Hospitalist
PROC: 0DB28ZX Excision of Middle Esophagus, Via Natural or Artificial Opening Endoscopic, Diagnostic (ICD-10-PCS; principal; 2018-11-16 08:30)
DX: R13.10 Dysphagia, unspecified (principal); J44.1 Chronic obstructive pulmonary disease with (acute) exacerbation; I50.22 Chronic systolic (congestive) heart failure; J96.10 Chronic respiratory failure, unspecified whether with hypoxia or hypercapnia; I48.2 Chronic atrial fibrillation; Z79.01 Long term (current) use of anticoagulants; K22.9 Disease of esophagus, unspecified; K44.9 Diaphragmatic hernia without obstruction or gangrene
CPT/HCPCS: 36415; 71045; 71046; 80053; 83880; 85025; 88305; 88360; 88374; 94640; 94760; 96374; 99285-25; J1650; J2704; J2930; J7040; J7120; J7512

== ENCOUNTER 2019-01-06 19:50 | Inpatient (IN) | payer OTHER, MEDICARE ==
[~2019-01-06] VITALS: Ht 193 cm; Wt 83.8 kg
[~2019-01-06 19:50] MED LIST changes: +Culturelle1 CAP PO; +GABA300 PO; +MIRALAX17 GM PO; +Prednisone10 MG PO; +SUCR1 PO
[2019-01-06 20:02] LABS: Base Excess Venous 9.5 mmol/L; PCO2 Venous 68.7 mmHg (38-42); PO2 Venous 40.5 mmHg (38-42); pH Blood Venous 7.32 (7.34-7.37)
[2019-01-06 20:29] LABS: BASOPHILS ABSOLUTE AUTO 0.05 K/mm3 (0.00-0.23); BASOPHILS PERCENT AUTO 1 % (0-2); EOSINOPHILS ABSOLUTE AUTO 0.93 K/mm3 (0.00-0.68); EOSINOPHILS PERCENT AUTO 12 % (0-6); Hematocrit 44.7 % (37.0-53.0); Hemoglobin 13.3 g/dL (13.5-17.5); IMMATURE GRAN ABSOLUTE AUTO 0.02 K/mm3 (0.00-0.10); IMMATURE GRAN PERCENT AUTO 0 % (0-1); LYMPHOCYTES ABSOLUTE AUTO 1.38 K/mm3 (0.84-5.20); LYMPHOCYTES PERCENT AUTO 17 % (21-46); MONOCYTES PERCENT AUTO 11 % (4-13); Mean Corpuscular HGB 25.4 pg (26.0-34.0); Mean Corpuscular HGB Conc 29.8 g/dL (31.5-36.5); Mean Corpuscular Volume 85 fL (80-100); Mean Platelet Volume 10.5 fL (9.1-12.4); NEUTROPHILS PERCENT AUTO 60 % (41-73); Platelet Count 261 K/mm3 (150-400); RDW Coefficient Variation 20.5 % (11.7-14.2); RDW Standard Deviation 63.5 fL (35.1-46.3); Red Blood Cell Count 5.24 M/mm3 (4.30-5.90); White Blood Cell Count 8.08 K/mm3 (4.00-11.30)
[2019-01-06] MEDS ORDERED: Aspir 8181 MG PO (20:37)
[2019-01-06] MEDS ORDERED: TRAZ100 PO (20:37)
[2019-01-06] MEDS ORDERED: Roxicodone15 MG PO (20:38)
[2019-01-06] MEDS ORDERED: Lisinopril2.5 MG PO (20:39)
[2019-01-06] MEDS ORDERED: Pacerone400 MG PO (20:39)
[2019-01-06 20:41] LABS: International Normalized Ratio 1.09; Prothrombin Time Results 11.5 Sec (9.7-11.5)
[2019-01-06] MEDS ORDERED: METO50ER PO (20:43)
[2019-01-06 20:44] LABS: Alanine Aminotransfer (ALT/SGP 36 U/L (12-78); Albumin, Blood 3.5 g/dL (3.4-5.0); Albumin/Globulin Ratio 0.9 (0.8-1.8); Alk Phos 95 U/L (50-136); Anion Gap 3 mmol/L (6-16); Aspartate Aminotrans (AST/SGOT 39 U/L (12-37); Bilirubin, Total 0.3 mg/dL (0.1-1.0); Blood Urea Nitrogen 15 mg/dL (8-24); Bun/Creatinine Ratio 16.4 (12.0-20.0); CO2, Blood 36 mmol/L (21-32); Calcium, Blood 8.9 mg/dL (8.5-10.1); Chloride, Blood 100 mmol/L (98-108); Creatinine, Blood 0.92 mg/dL (0.60-1.20); Globulin, Blood 3.9 g/dL (2.2-4.0); Glomerular Filtration Rate >60 (60-); Glucose, Blood 107 mg/dL (70-99); Potassium, Blood 4.2 mmol/L (3.5-5.5); Sodium, Blood 139 mmol/L (136-145); Total Protein, Blood 7.4 g/dL (6.4-8.2); Troponin I <0.015 ng/mL (0.000-0.040)
[2019-01-06] MEDS ORDERED: DILT120 PO (20:44)
[2019-01-07 05:19] LABS: BASOPHILS PERCENT AUTO 0 % (0-2); EOSINOPHILS ABSOLUTE AUTO 0.01 K/mm3 (0.00-0.68); EOSINOPHILS PERCENT AUTO 0 % (0-6); Hematocrit 38.5 % (37.0-53.0); Hemoglobin 11.6 g/dL (13.5-17.5); IMMATURE GRAN ABSOLUTE AUTO 0.01 K/mm3 (0.00-0.10); IMMATURE GRAN PERCENT AUTO 0 % (0-1); LYMPHOCYTES ABSOLUTE AUTO 0.25 K/mm3 (0.84-5.20); LYMPHOCYTES PERCENT AUTO 7 % (21-46); MONOCYTES ABSOLUTE AUTO 0.03 K/mm3 (0.16-1.47); MONOCYTES PERCENT AUTO 1 % (4-13); Mean Corpuscular HGB 24.9 pg (26.0-34.0); Mean Corpuscular HGB Conc 30.1 g/dL (31.5-36.5); Mean Corpuscular Volume 83 fL (80-100); Mean Platelet Volume 10.7 fL (9.1-12.4); NEUTROPHILS ABSOLUTE AUTO 3.32 K/mm3 (1.96-9.15); NEUTROPHILS PERCENT AUTO 92 % (41-73); Platelet Count 221 K/mm3 (150-400); RDW Coefficient Variation 20.4 % (11.7-14.2); RDW Standard Deviation 61.1 fL (35.1-46.3); Red Blood Cell Count 4.65 M/mm3 (4.30-5.90); White Blood Cell Count 3.62 K/mm3 (4.00-11.30)
[2019-01-07 06:29] LABS: Anion Gap 7 mmol/L (6-16); Blood Urea Nitrogen 16 mg/dL (8-24); Bun/Creatinine Ratio 18.7 (12.0-20.0); CO2, Blood 31 mmol/L (21-32); Calcium, Blood 8.5 mg/dL (8.5-10.1); Chloride, Blood 101 mmol/L (98-108); Creatinine, Blood 0.86 mg/dL (0.60-1.20); Glomerular Filtration Rate >60 (60-); Glucose, Blood 123 mg/dL (70-99); Potassium, Blood 4.3 mmol/L (3.5-5.5); Sodium, Blood 139 mmol/L (136-145)
--- NOTE | 2019-01-07 07:19 | NUR ---
ASSUMED CARE APPROXIMATELY 2330; PT ALERT; C/O SOB; NON COMPLIANT W/ BIPAP; NC 5L IN PLACE; SEVERAL TIMES NEEDING TO REPOSITION NC PT DOES NOT KEEP IT ON; PT DESIRES TO HAVE BELONGINGS IN LAP; FEET DRY AND CRACKED; LEGS TENDER UPON PALPATION; PT DEFENSIVE AT TIMES; BECAME ANGRY THIS MORNING DUE TO NOT HAVING A CHEESEBURGER BROUGHT TO THE ROOM; PT GIVEN PANTRY ITEMS UNTIL BREAKFAST TRAY; CALL LIGHT IN REACH; BED IN LOWEST POSITION; WILL CONTINUE TO MONITOR AND ASSESS UNTIL HAND OFF TO DAY SHIFT RN.
--- NOTE | 2019-01-07 20:11 | NUR ---
PT SITTING UP IN BED WATCHING TV WITH RT TX IN PROCESS WHILE BEDSIDE REPORT GIVEN TO NOC RN, KIKA. PT HAS BEEN PLEASANT AND SOCIAL. STATES REGRET OF BEHAVIOR TOWARDS PREVIOUS NOC SHIFT STAFF, STATES HE WISHED HE COULD APPOLOGIZE. VSS T/O SHIFT. PT REQUESTS SHOWER THIS BOZENA. DISCUSSED IMPORTANCE OF A BALANCED DIET AND HOW BIPAP CAN IMPROVED THIS HOSPITALIZATION. PT HAS BEEN REQUESTING MANY FREQUENT SNACKS AND HAS REFUSED BIPAP T/O THE DAY. NO OTHER ACUTE CHANGES THIS SHIFT
[2019-01-08 04:10] LABS: BASOPHILS PERCENT AUTO 0 % (0-2); EOSINOPHILS PERCENT AUTO 0 % (0-6); Hematocrit 34.8 % (37.0-53.0); Hemoglobin 10.5 g/dL (13.5-17.5); IMMATURE GRAN ABSOLUTE AUTO 0.06 K/mm3 (0.00-0.10); IMMATURE GRAN PERCENT AUTO 1 % (0-1); LYMPHOCYTES ABSOLUTE AUTO 0.36 K/mm3 (0.84-5.20); LYMPHOCYTES PERCENT AUTO 4 % (21-46); MONOCYTES PERCENT AUTO 4 % (4-13); Mean Corpuscular HGB 24.8 pg (26.0-34.0); Mean Corpuscular HGB Conc 30.2 g/dL (31.5-36.5); Mean Corpuscular Volume 82 fL (80-100); Mean Platelet Volume 10.7 fL (9.1-12.4); NEUTROPHILS ABSOLUTE AUTO 9.43 K/mm3 (1.96-9.15); NEUTROPHILS PERCENT AUTO 92 % (41-73); Platelet Count 209 K/mm3 (150-400); RDW Coefficient Variation 20.7 % (11.7-14.2); RDW Standard Deviation 61.6 fL (35.1-46.3); Red Blood Cell Count 4.24 M/mm3 (4.30-5.90); White Blood Cell Count 10.25 K/mm3 (4.00-11.30)
[2019-01-08 04:25] LABS: Alanine Aminotransfer (ALT/SGP 45 U/L (12-78); Albumin, Blood 2.9 g/dL (3.4-5.0); Alk Phos 84 U/L (50-136); Anion Gap 5 mmol/L (6-16); Aspartate Aminotrans (AST/SGOT 38 U/L (12-37); Bilirubin, Total 0.2 mg/dL (0.1-1.0); Blood Urea Nitrogen 19 mg/dL (8-24); Bun/Creatinine Ratio 23.4 (12.0-20.0); CO2, Blood 33 mmol/L (21-32); Calcium, Blood 8.6 mg/dL (8.5-10.1); Chloride, Blood 101 mmol/L (98-108); Creatinine, Blood 0.81 mg/dL (0.60-1.20); Glomerular Filtration Rate >60 (60-); Glucose, Blood 171 mg/dL (70-99); Magnesium, Blood 1.9 mg/dL (1.6-2.4); Potassium, Blood 4.1 mmol/L (3.5-5.5); Sodium, Blood 139 mmol/L (136-145); Total Protein, Blood 5.9 g/dL (6.4-8.2)
--- NOTE | 2019-01-08 05:47 | NUR ---
SHIFT SUMMARY PT SLEEPING IN ROOM COMFORTABLY AT THIS TIME. NO ACUTE CHANGES IN STATSU SINCE ARRIVAL. PT HAS SLEPT IN SHORT PERIODS T/O NIGHT. MEDICATED MULTIPLE TIMES FOR PAIN PER EMAR. RESP EVEN SLIGHTLY TACHY ON 5L O2 VIA NC. PT CONTINUES TO REFUSE BIPAP. PT DID ATTMPT TO WEAR BIPAP WITH STAFF IN ROOM, SOON THIS RN TOLD PT I HAD TO LEAVE ROOM AND EDUCATED PT TO CALL WHEN NEEDING A BREAK PT BECAME ANXIOUS AND PULLED OFF MASK. PT REPORTED HE NEEDED STAFF IN ROOM TO WEAR MASK. PT EDUCATED THAT STAFF COULD NOT STAY IN ROOM ENTIRE DURATION OF WEARING BIPAP D/T PROVIDING CARE FOR OTHER PT'S. PT REPORTED WOULD TRY AGAIN LATER WHEN SOMEONE HAS TIME TO SIT WITH HIM. PT DENIES OTHER NEEDS AT THIS TIME. CALL LIGHT IN REACH.
--- NOTE | 2019-01-08 12:23 | NUR ---
[facility]G EMS START LFA
--- NOTE | 2019-01-08 17:18 | NUR ---
PT HAS REFUSED BIBPAP T/O THE DAY. PT REQUESTING PAIN MEDICATIONS AND BREATHING TREATMENTS REGULARLY. 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 DESPITE CONSTANT PAIN MEDICATION ADMIN T/O SHIFT PT'S PAIN HAS ONLY DECREASED FROM REPORTED "8.5" TO "7.5" WHICH PT STS 7.5 IS HIS BASELINE AND HIS ACCEPTABLE LEVEL OF PAIN. DENIES CP, BUT REPORTS INTERMITTENT WORSENING SOB T/O THE DAY. EXPIRATORY AND INSPIRATORY WHEEZES NOTED IN ALL LOBES
--- NOTE | 2019-01-08 20:17 | NUR ---
CARE ASSUMPTION / "MEAT STUCK" PT A&O C/O "CHOKING TO " AND THERE BEING "MEAT STUCK" AND POINTS TO MID STERNUM REGION INITIALLY, THEN POINTS TO BASE OF THROAT. PT ABLE TO VERBALLY COMMUNICATE AND SHOWS NO CHANGE IN RESPIRATORY STATUS. PT CONTINUES TO BE SPO2 OF 92-93% ON 6L NC PREVIOUSLY NOTED. NO COUGHING UNTIL PT ATTEMPTED TO MAKE SELF "THROW MEAT UP TO GET IT OUT." CLEAR EMESIS NOTED TO BE ON FLOOR AFTER PT ATTEMPT TO SELF REMOVE MEAT CHUNK. CALL TO MD JONES W/ ORDERS FOR STAT PORTABLE CXR AND PT BE NPO UNTIL MEAT CHUNK CLEARED. IN ROOM STAT CXR DONE @ APPROX 2030. PT ALREADY ASKING TO EAT AND DRINK. NPO STATUS FURTHER EXPLAINED TO PT. WILL CONTINUE TO MONITOR AND PROVIDE CARE.
--- NOTE | 2019-01-09 00:30 | NUR ---
PT NO LONGER NPO / MEAT CHUNK CLEARED MOLD CAPPER HELPER ROBERT GIVING OKAY FOR PT TO EAT AND DRINK AGAIN @ APPROX 2200 AFTER MOLD CAPPER HELPER REVIEWED CXR. PT ALSO REPORTING MEAT CHUNK "DROPPED DOWN" AND NO LONGER FEELS DISCOMFORT/OBSTRUCTION. PT CAUTIONED TO CHEW FOOD THOROUGHLY AND EAT SLOWLY. WILL CONTINUE TO MONITOR AND PROVIDE CARE.
[2019-01-09 05:38] LABS: BASOPHILS ABSOLUTE AUTO 0.01 K/mm3 (0.00-0.23); BASOPHILS PERCENT AUTO 0 % (0-2); EOSINOPHILS PERCENT AUTO 0 % (0-6); Hematocrit 37.3 % (37.0-53.0); Hemoglobin 11.2 g/dL (13.5-17.5); IMMATURE GRAN ABSOLUTE AUTO 0.08 K/mm3 (0.00-0.10); IMMATURE GRAN PERCENT AUTO 1 % (0-1); LYMPHOCYTES ABSOLUTE AUTO 0.32 K/mm3 (0.84-5.20); LYMPHOCYTES PERCENT AUTO 2 % (21-46); MONOCYTES ABSOLUTE AUTO 0.53 K/mm3 (0.16-1.47); MONOCYTES PERCENT AUTO 4 % (4-13); Mean Corpuscular HGB 25.2 pg (26.0-34.0); Mean Corpuscular Volume 84 fL (80-100); NEUTROPHILS ABSOLUTE AUTO 13.16 K/mm3 (1.96-9.15); NEUTROPHILS PERCENT AUTO 93 % (41-73); Platelet Count 230 K/mm3 (150-400); RDW Coefficient Variation 21.4 % (11.7-14.2); RDW Standard Deviation 65.1 fL (35.1-46.3); Red Blood Cell Count 4.44 M/mm3 (4.30-5.90)
[2019-01-09 05:58] LABS: Alanine Aminotransfer (ALT/SGP 46 U/L (12-78); Albumin, Blood 3.2 g/dL (3.4-5.0); Alk Phos 82 U/L (50-136); Anion Gap 6 mmol/L (6-16); Aspartate Aminotrans (AST/SGOT 33 U/L (12-37); Bilirubin, Total 0.3 mg/dL (0.1-1.0); Blood Urea Nitrogen 19 mg/dL (8-24); Bun/Creatinine Ratio 25.2 (12.0-20.0); CO2, Blood 30 mmol/L (21-32); Calcium, Blood 8.9 mg/dL (8.5-10.1); Chloride, Blood 101 mmol/L (98-108); Creatinine, Blood 0.75 mg/dL (0.60-1.20); Globulin, Blood 3.1 g/dL (2.2-4.0); Glomerular Filtration Rate >60 (60-); Glucose, Blood 121 mg/dL (70-99); Magnesium, Blood 2.1 mg/dL (1.6-2.4); Potassium, Blood 4.5 mmol/L (3.5-5.5); Sodium, Blood 137 mmol/L (136-145); Total Protein, Blood 6.3 g/dL (6.4-8.2)
--- NOTE | 2019-01-09 07:15 | NUR ---
SHIFT SUMMARY PT A&O X4. VSS. LUNG SOUNDS WHEEZY T/O. SPO2 90-93% ON 6L NC. MONITOR SHOWS NSR, HR 60-70'S. EPISODE OF FEELING LIKE "MEAT IS STUCK" FOLLOWED BY STAT CXR AND TEMPORARY NPO STATUS UNTIL "MEAT DROPPED DOWN" AND J2EE SOFTWARE ENGINEER CLEARED PT AFTER REVIEWING CXR. NO CHANGE IN RESPIRATORY STATUS W/ MEAT EPISODE, SEE PREVIOUS NOTES. PT TOLERATING ORAL INTAKE W/OUT FURTHER ISSUE. REPORT GIVEN TO DAY SHIFT RN.
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
--- NOTE | 2019-01-09 13:30 | NUR ---
PT DOING OK, IS VERY BOTHERED BY HIS TROUBLE SWALLOWING, CALL TO DR. BEAUCHAMP REGARDING THIS, SHE ORDERED A GI CONSULT. HIS PAIN IS BETTER, HE IS NOT SHAKING ANY MORE, HE STILL RATES IT AT A 7. CALL LIGHT IN REACH.
--- NOTE | 2019-01-09 16:55 | NUR ---
PT HAD A SHOWER, HE WAS RELUCTANT TO ASK FOR HELP. TURNED 02 UP TO 6 LITERS WHILE IN, HE DID GET PRETTY SOB, AND WAS FAST IN THE SHOWER. ENCOURAGED HIM TO ALLOW STAFF TO ASSIST HIM MORE NEXT TIME SO HE ISN'T EXERT HIMSELF MUCH. LINEN ON BED WAS CHANGED. CALL LIGHT IN REACH, VISITOR IN ROOM. CALL LIGHT IN REACH.
--- NOTE | 2019-01-09 18:39 | NUR ---
PT RESTING IN BED, STATES HE IS DOING PRETTY WELL, DR. TRONCOSO CONSULTED AND SAID TO KEEP HIM ON PUREED OR F.L DIET. WILL SEE HIM TOMORROW. IS ASKING FOR PAIN MEDS BUT IS AN HR TO EARLY. EXPLAINED HIS PAIN MEDICATION REGIMEN SEVERAL TIMES. CALL LIGHT IN REACH.
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
--- NOTE | 2019-01-10 02:37 | NUR ---
0020 PT CARE ASSUMED AFTER PATIENT WAS TRANSFERRED TO ROOM 334 PER WHEELCHAIR FROM PCU, PTS PERSONAL BOTTLE OF OXYCODONE WAS REMOVED AND LOCKED UP IN PHARMACY--RECEIPT OBTAINED.
--- NOTE | 2019-01-10 04:07 | NUR ---
0405 PT ADMITTED TO ROOM 336 PER CART FROM ER.
[2019-01-10 05:07] LABS: BASOPHILS ABSOLUTE AUTO 0.01 K/mm3 (0.00-0.23); BASOPHILS PERCENT AUTO 0 % (0-2); EOSINOPHILS PERCENT AUTO 0 % (0-6); Hematocrit 35.5 % (37.0-53.0); IMMATURE GRAN ABSOLUTE AUTO 0.05 K/mm3 (0.00-0.10); IMMATURE GRAN PERCENT AUTO 1 % (0-1); LYMPHOCYTES ABSOLUTE AUTO 0.25 K/mm3 (0.84-5.20); LYMPHOCYTES PERCENT AUTO 3 % (21-46); MONOCYTES ABSOLUTE AUTO 0.38 K/mm3 (0.16-1.47); MONOCYTES PERCENT AUTO 4 % (4-13); Mean Corpuscular HGB 25.7 pg (26.0-34.0); Mean Corpuscular Volume 83 fL (80-100); Mean Platelet Volume 10.5 fL (9.1-12.4); NEUTROPHILS ABSOLUTE AUTO 9.09 K/mm3 (1.96-9.15); NEUTROPHILS PERCENT AUTO 93 % (41-73); Platelet Count 215 K/mm3 (150-400); RDW Coefficient Variation 21.1 % (11.7-14.2); RDW Standard Deviation 63.7 fL (35.1-46.3); Red Blood Cell Count 4.28 M/mm3 (4.30-5.90); White Blood Cell Count 9.78 K/mm3 (4.00-11.30)
[2019-01-10 05:35] LABS: Anion Gap 4 mmol/L (6-16); Blood Urea Nitrogen 20 mg/dL (8-24); Bun/Creatinine Ratio 27.8 (12.0-20.0); CO2, Blood 31 mmol/L (21-32); Calcium, Blood 8.8 mg/dL (8.5-10.1); Chloride, Blood 102 mmol/L (98-108); Creatinine, Blood 0.72 mg/dL (0.60-1.20); Glomerular Filtration Rate >60 (60-); Glucose, Blood 113 mg/dL (70-99); Potassium, Blood 4.5 mmol/L (3.5-5.5); Sodium, Blood 137 mmol/L (136-145)
--- NOTE | 2019-01-10 06:16 | NUR ---
SHIFT SUMMARY: 63 Y/O MALE HAD RESTLESS NIGHT AT TIMES WITH FREQUENT REQUESTS FOR PAIN MEDS (PAIN MEDS GIVEN AT 0400, OXYCODONE 10MG PO FOR GENERALIZED BACK PAIN WITH RELIEF FELT), LUNG SOUNDS ARE WHEEZING THROUGHOUT WHILE WEARING O2 AT 4L/M PER NASAL CANNALA (INCREASED DYSPNEA NOTED WITH SLIGHT ACTIVITY), WAITING FOR GI CONSULT TODAY REGARDING SWALLOWING ISSUES, BED LOW POSITION WITH CALL LIGHT AT SIDE.
--- NOTE | 2019-01-10 12:47 | NUR ---
NOTIFIED DR. PRUITT OF GENERALIZED PAIN.
--- NOTE | 2019-01-10 17:00 | NUR ---
SHIFT SUMMARY PATIENT REQUESTING BREATHING TX PRN. REQUESTING PAIN MEDICATION FOR GENERALIZED PAIN OF THE ENTIRE LEFT SIDE, STATES THIS IS CHRONIC. ENCOURAGING PATIENT TO AMBULATE AND GET OUT OF ROOM FOR DISTRACTION TECHNIQUES. PAIN MEDICATIONS CHANGED PER EMAR. 4L O2 AT THIS TIME, TOLERATING THIS WELL. STATES THAT IS HIS HOME BASELINE WELL. DISCUSSED WITH THIS RN A FOLLOW UP APPOINTMENT WITH ONCOLOGY AND THE REQUIRED DIAGNOSITIC SCAN FOR EARLY JANUARY. NO ACUTE ISSUES NOTED.
--- NOTE | 2019-01-11 00:42 | NUR ---
2300 PT WAS NOTED TO BE CONTINUOUSLY ASKING SUPERVISING DEPUTY STAFF FOR REGULAR FOOD TO INCLUDE AT ONE ONE POINT ARGUING LOUDLY WITH SUPERVISING DEPUTY. THIS NURSE INTERVENED AND PATIENT CONTINUED TO INSIST THAT HE SHOULD HAVE CRACKERS, SANDWICH AND PEANUT BUTTER THIS WAS WITHIN PARAMETERS OF PUREED DIET IN HIS MIND. THIS NURSE REVIEWED WHAT A PUREED DIET ENTAILS AND OFFERED PATIENT TOMATO SOUP, CREAM OF MUSHROOM SOUP WITH PATIENT ACCEPTING THIS EVENING SNACK. PT ALSO EDUCATED THAT STAFF WILL NOT BE PROVIDING ANY REGULAR FOOD UNLESS THE INDUSTRIAL X RAY OPERATOR CHANGES HIS CURRENT DIET DUE RISK CHOKING.
--- NOTE | 2019-01-11 04:34 | NUR ---
SHIFT SUMMARY: 63 Y/O MALE HAD RESTLESS NIGHT AT TIMES WITH PATIENT REQUIRING PAIN MEDS EVERY 6 HOURS FOR GENERALIZED PAIN (GIVEN OXYCODONE 15MG PO AND TORADOL 15MG IVP TWICE WITH RELIEF FELT), PT BELIEVES HE REQUIRES HIGHER DOSAGES NARCOTICS AND MORE FREQUENCY AT TIMES DUE TO HIS LONG TIME USAGE OF NARCOTICS, PT ALSO REQUIRED RE-EDUCATION WHAT PUREED DIET ENTAILS PATIENT VOICED THAT HE INTENDS TO BE NON COMPLIANT WITH THE DIET UPON DISCHARGE FROM HOSPITAL HE DISLIKES IT (PT TENDS TO IGNORE ANY TEACHING STAFF PERFORMS FOR HIM AT TIMES), ALERT AND ORIENTED X 4, ABLE TO TRANSFER AND AMBULATE TO BATHROOM AND BACK WITHOUT ISSUE, WEARING O2 AT 2L/M PER NASAL CANNULA WITH INCREASED DYSPNEA NOTED WITH SLIGHT ACTIVITY, TREMORS BILATERAL ARMS NOTED, BED LOW POSITION WITH CALL LIGHT AT SIDE.
[2019-01-11 05:18] LABS: Albumin, Blood 2.8 g/dL (3.4-5.0); Anion Gap 4 mmol/L (6-16); Blood Urea Nitrogen 23 mg/dL (8-24); Bun/Creatinine Ratio 31.3 (12.0-20.0); CO2, Blood 30 mmol/L (21-32); Calcium, Blood 8.4 mg/dL (8.5-10.1); Chloride, Blood 102 mmol/L (98-108); Creatinine, Blood 0.73 mg/dL (0.60-1.20); Glomerular Filtration Rate >60 (60-); Glucose, Blood 133 mg/dL (70-99); Phosphorus, Blood 2.4 mg/dL (2.5-4.9); Potassium, Blood 4.3 mmol/L (3.5-5.5); Sodium, Blood 136 mmol/L (136-145)
--- NOTE | 2019-01-11 06:19 | NUR ---
PT. refusing care Walked into PT. room at 0535, and went to empty the urinal. PT. yelled at RUBBER FACTORY WORKER, and told the RUBBER FACTORY WORKER to "Get the hell out of his room". At 0610, PT. called and asked for pain meds. When he realized it was not the nurse, he freaked out and started yelling again.
[2019-01-11] MEDS ORDERED: BUDE.25 NEB (10:50)
[2019-01-11] MEDS ORDERED: DOCU100 PO (10:51)
[2019-01-11] MEDS ORDERED: GUAI600T33 PO (10:51)
[2019-01-11] MEDS ORDERED: ALBU3IS INH (10:52)
[2019-01-11] MEDS ORDERED: Prednisone10 MG PO (10:54)
[2019-01-11] MEDS ORDERED: SENN187 PO (10:55)
[2019-01-11] MEDS ORDERED: TIOT18 INH (10:55)
[2019-01-11] MEDS ORDERED: Aspirin EC81 MG PO (10:59)
[2019-01-11] MEDS ORDERED: Pacerone400 MG PO (11:13)
--- NOTE | 2019-01-11 11:57 | NUR ---
DISCHARGE INSTRUCTIONS VERBALIZED TO PATIENT WELL A PRINTED COPY FOR REFERENCE. IV REMOVED. OXYCODONE THAT PATIENT BROUGHT WITH HIM TO THE HOSPITAL RETURNED TO PATIENT. MEDICATIONS FAXED TO [facility] [address], PER PATIENT REQUEST. ALL QUESTIONS ANSWERED.
[2019-01-11] MEDS ORDERED: FURO20 PO (12:08)
[2019-01-11] MEDS ORDERED: K-Phos Origina500 MG PO (12:09)
--- NOTE | 2019-01-11 12:49 | NUR ---
PATIENT DISCHARGED FROM FACILITY AT 1242. CAME TO TRANSPORT PATIENT OUT TO VEHICLE. PORTABLE OXYGEN TANK PROVIDED BY [facility].
== END 2019-01-11 12:45 | disposition home or self-care (01) | DRG 189 ==
LOC: ER 19:50 → PCU 21:39 → MEDS 01-10 00:23 → ENPENDDIS 01-11 10:31 → MEDS 01-11 12:45
PROVIDERS: Emergency Medicine; Internal Medicine; ADMIT Hospitalist
PROC: 5A09357 Assistance with Respiratory Ventilation, Less than 24 Consecutive Hours, Continuous Positive Airway Pressure (ICD-10-PCS; principal; 2019-01-06)
DX: J96.21 Acute and chronic respiratory failure with hypoxia (principal); G92 Toxic encephalopathy; J44.1 Chronic obstructive pulmonary disease with (acute) exacerbation; C15.9 Malignant neoplasm of esophagus, unspecified; I48.20 Chronic atrial fibrillation, unspecified; I42.9 Cardiomyopathy, unspecified; I50.22 Chronic systolic (congestive) heart failure; R13.10 Dysphagia, unspecified; G89.4 Chronic pain syndrome; I11.0 Hypertensive heart disease with heart failure; Z99.81 Dependence on supplemental oxygen; E78.5 Hyperlipidemia, unspecified; Z87.891 Personal history of nicotine dependence; T42.4X5A Adverse effect of benzodiazepines, initial encounter; J96.22 Acute and chronic respiratory failure with hypercapnia
CPT/HCPCS: 36415; 71045; 80048; 80053; 80069; 82803; 83735; 83880; 84145; 84443; 84484; 85025; 85610; 93005; 93010; 94640; 94644; 94660; 94667; 94760; 94762; 96361; 96365; 96375; 99285-25; C9113; J0456; J1885; J2405; J2930; J3475; J7030; J7050; J7512

== ENCOUNTER 2019-05-14 08:44 | Day surgery (SDC) | payer OTHER, MEDICARE ==
[~2019-05-14] VITALS: Ht 193 cm; Wt 73.4 kg
[~2019-05-14 08:44] MED LIST changes: +ALBU3IS INH; +Acetaminophen650 M1 PO; +Aspir 8181 MG PO; +Aspirin EC81 MG PO; +Atarax10 MG PO; +B-1100 M1 PO; +BUDE.25 NEB; +DILT30; +DOCU100 PO; +FLUT1DIS5 INH; +FOLI1 PO; +FURO40 PO; +K-Phos Origina500 MG PO; +KAPSPARGO SPRI100 MG PO; +Lisinopril2.5 MG PO; +METO50ER PO; +ONDA8 PO; +POTCIT10 PO; +PROAIR DIGIHAL90 MCG INH; +Robaxin-750750 MG PO; +SENN187 PO; +TIOT18 INH; +TRAZ100 PO; +TRAZ50 PO
== END 2019-05-14 10:53 | disposition home or self-care (01) ==
LOC: ORSCSDS 08:44
PROVIDERS: Internal Medicine Gastroenterology
PROC: 0DB58ZX Excision of Esophagus, Via Natural or Artificial Opening Endoscopic, Diagnostic (ICD-10-PCS; principal; 2019-05-14 10:00)
DX: C15.3 Malignant neoplasm of upper third of esophagus (principal); K22.719 Barrett's esophagus with dysplasia, unspecified; K44.9 Diaphragmatic hernia without obstruction or gangrene; J44.9 Chronic obstructive pulmonary disease, unspecified; I10 Essential (primary) hypertension; K21.9 Gastro-esophageal reflux disease without esophagitis; F17.210 Nicotine dependence, cigarettes, uncomplicated; Z79.899 Other long term (current) drug therapy
CPT/HCPCS: 88305; J2370; J2405; J2704; J7120

== ENCOUNTER 2019-07-16 15:00 | Inpatient (IN) | payer OTHER, MEDICARE ==
[~2019-07-16] VITALS: Ht 193 cm; Wt 69.0 kg
[~2019-07-16 15:00] MED LIST changes: -DILT30; -KAPSPARGO SPRI100 MG PO; -TRAZ50 PO
[2019-07-16 17:24] LABS: BASOPHILS ABSOLUTE AUTO 0.04 K/mm3 (0.00-0.23); BASOPHILS PERCENT AUTO 0 % (0-2); EOSINOPHILS ABSOLUTE AUTO 0.06 K/mm3 (0.00-0.68); EOSINOPHILS PERCENT AUTO 0 % (0-6); Hematocrit 37.5 % (37.0-53.0); Hemoglobin 12.2 g/dL (13.5-17.5); IMMATURE GRAN ABSOLUTE AUTO 0.07 K/mm3 (0.00-0.10); IMMATURE GRAN PERCENT AUTO 1 % (0-1); LYMPHOCYTES ABSOLUTE AUTO 0.51 K/mm3 (0.84-5.20); LYMPHOCYTES PERCENT AUTO 4 % (21-46); MONOCYTES ABSOLUTE AUTO 1.31 K/mm3 (0.16-1.47); MONOCYTES PERCENT AUTO 9 % (4-13); Mean Corpuscular HGB 31.6 pg (26.0-34.0); Mean Corpuscular HGB Conc 32.5 g/dL (31.5-36.5); Mean Corpuscular Volume 97 fL (80-100); Mean Platelet Volume 11.1 fL (9.1-12.4); NEUTROPHILS ABSOLUTE AUTO 12.55 K/mm3 (1.96-9.15); NEUTROPHILS PERCENT AUTO 86 % (41-73); Platelet Count 194 K/mm3 (150-400); RDW Coefficient Variation 14.5 % (11.7-14.2); RDW Standard Deviation 51.8 fL (35.1-46.3); Red Blood Cell Count 3.86 M/mm3 (4.30-5.90); White Blood Cell Count 14.54 K/mm3 (4.00-11.30)
[2019-07-16 17:56] LABS: Alanine Aminotransfer (ALT/SGP 168 U/L (12-78); Albumin, Blood 3.1 g/dL (3.4-5.0); Albumin/Globulin Ratio 0.9 (0.8-1.8); Alk Phos 873 U/L (50-136); Anion Gap 11 mmol/L (6-16); Aspartate Aminotrans (AST/SGOT 353 U/L (12-37); Bilirubin, Total 2.3 mg/dL (0.1-1.0); Blood Urea Nitrogen 46 mg/dL (8-24); Bun/Creatinine Ratio 33.6 (12.0-20.0); CO2, Blood 25 mmol/L (21-32); Calcium, Blood 8.4 mg/dL (8.5-10.1); Chloride, Blood 93 mmol/L (98-108); Creatinine, Blood 1.37 mg/dL (0.60-1.20); Globulin, Blood 3.4 g/dL (2.2-4.0); Glomerular Filtration Rate 52 (60-); Glucose, Blood 117 mg/dL (70-99); Potassium, Blood 4.6 mmol/L (3.5-5.5); Sodium, Blood 129 mmol/L (136-145); Total Protein, Blood 6.5 g/dL (6.4-8.2)
[2019-07-16 17:57] LABS: Troponin I <0.015 ng/mL (0.000-0.040)
[2019-07-16 19:53] LABS: International Normalized Ratio 1.32; Prothrombin Time Results 13.9 Sec (9.7-11.5)
[2019-07-16] MEDS ORDERED: OXYC5 PO (21:19)
[2019-07-16] MEDS ORDERED: BUPROPION XL150 M1 PO (21:21)
[2019-07-16] MEDS ORDERED: TOPROL XL50 M1 PO (21:22)
[2019-07-16] MEDS ORDERED: INVOKANA100 MG PO (21:24)
[2019-07-16] MEDS ORDERED: TRULICITY1.5 MG/0.5 SC (21:24)
[2019-07-16] MEDS ORDERED: Prednisone2.5 MG PO (21:25)
[2019-07-16] MEDS ORDERED: AMLODIPINE BESYL5 MG PO (21:27)
[2019-07-16] MEDS ORDERED: DILTIAZEM 24HR240 M3 PO (21:28)
[2019-07-16] MEDS ORDERED: Leflunomide10 MG PO (21:29)
[2019-07-16] MEDS ORDERED: LISI5 PO (21:29)
[2019-07-16] MEDS ORDERED: PANTOPRAZOLE SO40 M2 PO (21:30)
[2019-07-16] MEDS ORDERED: ELIQUIS5 M3 PO (21:31)
[2019-07-16] MEDS ORDERED: ALLO300 PO (21:31)
[2019-07-16] MEDS ORDERED: INSULIN LI100 UNIT/2 SC (21:32)
[2019-07-16] MEDS ORDERED: ROSUVASTATIN CA20 MG PO (21:33)
[2019-07-16] MEDS ORDERED: TORSE20 PO (21:33)
[2019-07-16] MEDS ORDERED: Metformin HCl1000 MG PO (21:34)
[2019-07-16] MEDS ORDERED: TRAZ100 PO (21:36)
[2019-07-16] MEDS ORDERED: NEURONTIN300 MG PO (21:37)
[2019-07-16] MEDS ORDERED: BASAGLAR K100 UNIT/1 (21:37)
[2019-07-17 00:14] LABS: Source, Urine Clean Catch
[2019-07-17 00:16] LABS: Appearance, Urine Clear (Clear); Bilirubin, Urine 1+ (Neg); Blood, Urine Neg (Neg); Color, Urine Amber (P-Yellow); Glucose Qualitative, Urine Neg (Neg); Ketones, Urine 1+ (Neg); Leukocyte Esterase, Urine Neg (Neg); Nitrite, Urine Neg (Neg); Protein, Urine Neg (Neg); Specific Gravity, Urine 1.025 (1.003-1.022); Urobilinogen, Urine 2+ (Normal)
--- NOTE | 2019-07-17 01:44 | NUR ---
0015 PT ADMITTED TO ROOM 310 PER CART FORM ER; REPORT RECEIVED FROM DM DORAN; PT VERY WEAK AND STOOD FOR WEIGHT ON BEDSIDE SCALE; PT UNSURE WHAT ANY OF HIS MEDICATIONS CURRENTLY TAKEN AT HOME ARE (ADMISSION ASSESSMENT INCOMPLETE AND DAY SHIFT NURSE TO BE ADVISED OF SUCH); PT WEARING O2 AT 2L/M PER NASAL CANNULA; PTS IS NOTED TO SLIGHTLY UNKEPT WITH BILATERAL FEET DIRTY AND BLACK ON PLANTAR SIDES; NO WOUNDS NOTED.
--- NOTE | 2019-07-17 04:14 | NUR ---
SHIFT SUMMARY: 64 Y/O MALE RESTED COMFORTABLY ALL SHIFT; HAPPY AND COOPERATIVE; BED LOW POSITION WITH CALL LIGHT AT SIDE.
[2019-07-17 04:32] LABS: BASOPHILS ABSOLUTE AUTO 0.04 K/mm3 (0.00-0.23); BASOPHILS PERCENT AUTO 0 % (0-2); EOSINOPHILS ABSOLUTE AUTO 0.62 K/mm3 (0.00-0.68); EOSINOPHILS PERCENT AUTO 5 % (0-6); Hematocrit 33.8 % (37.0-53.0); IMMATURE GRAN ABSOLUTE AUTO 0.05 K/mm3 (0.00-0.10); IMMATURE GRAN PERCENT AUTO 0 % (0-1); LYMPHOCYTES ABSOLUTE AUTO 0.52 K/mm3 (0.84-5.20); LYMPHOCYTES PERCENT AUTO 4 % (21-46); MONOCYTES ABSOLUTE AUTO 1.17 K/mm3 (0.16-1.47); MONOCYTES PERCENT AUTO 9 % (4-13); Mean Corpuscular HGB 31.5 pg (26.0-34.0); Mean Corpuscular HGB Conc 32.5 g/dL (31.5-36.5); Mean Corpuscular Volume 97 fL (80-100); Mean Platelet Volume 11.3 fL (9.1-12.4); NEUTROPHILS ABSOLUTE AUTO 10.89 K/mm3 (1.96-9.15); NEUTROPHILS PERCENT AUTO 82 % (41-73); Platelet Count 173 K/mm3 (150-400); RDW Coefficient Variation 14.6 % (11.7-14.2); RDW Standard Deviation 50.9 fL (35.1-46.3); Red Blood Cell Count 3.49 M/mm3 (4.30-5.90); White Blood Cell Count 13.29 K/mm3 (4.00-11.30)
[2019-07-17 04:53] LABS: Albumin, Blood 2.9 g/dL (3.4-5.0); Bun/Creatinine Ratio 31.3 (12.0-20.0); Calcium, Blood 8.2 mg/dL (8.5-10.1); Creatinine, Blood 1.34 mg/dL (0.60-1.20); Potassium, Blood 4.1 mmol/L (3.5-5.5); Total Protein, Blood 5.9 g/dL (6.4-8.2)
--- NOTE | 2019-07-17 17:06 | NUR ---
Mr. Piña was welcoming of prayer and emotional support. He admits he is fearful that is cancer has returned. He tells me he's been told he "might have stoach cancer." He responded well to gentle spiritual direction and prayer. He is very pleasant with a gentle demeanor. Instrument And Control Technician services will remain available.
--- NOTE | 2019-07-17 17:23 | NUR ---
PT HAS RESTED MOST OF THE SHIFT. HE HAS COMPLAINED OF ABD PAIN THROUGH OUT THE SHIFT AND MEDICATED PER EMAR. DR TRONCOSO WAS IN THIS SHIFT . PT IS ALERT AND ORIENTED AND ABLE TO EXPRESS ANY NEEDS. CALL LIGHT WITHIN REACH.
--- NOTE | 2019-07-17 23:16 | NUR ---
SPOKE TO HOSPITALIST REGARDING PATIENTS PAIN CONTROL. PT REPORTS PAIN NOT TOLERABLE EVEN AFTER RECEIVING 50MCG OF FENTANYL. NEW ORDERS RECEIVED TO CHANGE DOSING FROM EVERY FOUR HOURS TO EVERY TWO HOURS NEEDED.
--- NOTE | 2019-07-18 04:23 | NUR ---
SHIFT SUMMARY [id number]. PT PAIN DIFFICULT TO MANAGE DURING SHIFT. ORDERS RECEIVED TO CHANGE MEDS TO Q2, PT STATED ABILITY TO GET SOME SLEEP. TOLERATED PO WELL. MINIMAL APPETITE. DENIES NAUSEA. PT REPOSITIONING SELF IN BED, DECLINED ASSISTANCE.
[2019-07-18 07:10] LABS: HBSAG SCREEN Negative (Negative); HEP A AB, IGM Negative (Negative); HEP B CORE AB, IGM Negative (Negative); HEP B CORE AB, TOT Positive (Negative); HEP C VIRUS AB 9.1 (0.0-0.9); HEP C VIRUS AB 9.4 (0.0-0.9)
--- NOTE | 2019-07-18 14:57 | NUR ---
1440 DURING BED CHANGE WITH PRISM INSPECTORKirill James A BOTTLE OF OXYCODONE WENT FLYING OUT OF THE BED WITH PILLS SPILLING EVERY WHERE. THIS NURSE AND PRISM INSPECTOR PICKED ALL WE COULD FIND AND COUNTED (38 PILLS FOUND) AND REPLACED THEM BACK INTO BOTTLE. THIS NURSE INQUIRED TO WHY THE PATIENT HAD THESE PILLS AND HE STATED THEY WERE HIS. THIS NURSE EXPLAINED THAT WE DONT ALLOW PTS TO TAKE OWN MEDS ESPICALLY SINCE HE WAS ALREADY GETTING OXYCODONE . MEDS WERE TAKEN TO PHARMACY WHERE THEY NOW RESIDE. DOCTOR NOTIFIED.
--- NOTE | 2019-07-18 18:35 | NUR ---
NO ACUTE CHANGES .PT FOUND TO HAVE PERSONAL OXY ON HIS PERSON, WELL IN HIS BED. MEDS TAKEN , COUNTED , AND SUBMITTED TO PHARM UNTIL DISCHARGE.
--- NOTE | 2019-07-19 03:39 | NUR ---
SHIFT SUMMARY ASSUMED CARE PF PT AT 1900. PT IS A/OX3, WITH TIMES OF CONFUSION, STATES HE HAS N/T IN HIS LOWER EXTREMITES. HEART SOUNDS REGULAR, LUNG SOUNDS DIMINISHED WITH CRACKLES AT THE BASES, PT IS ON 2L NC, STATES HE HAS SOB AND CP DUE TO HIS RIGHT ABD HURTING. ABD VERY TENDER TO TOUCH AND FIRM. NOW IV INSERTED AT THE BEGINNING OF THE SHIFT, PT WAS CONFUSED AND THOUGHT IT WAS OXYGEN TUBING AND PULLED IT OUT, NEW IV INSERTED, WILL CONTINUE TO ASSESS. PT IS VERY SHAKY AND WEAK WITH TRANSFERS. PT ASKS FOR PAIN MEDICATION REGULARLY DUE TO PAIN IN HIS ABD. PT SLEPT FOR A COUPLE HOURS AT A TIME T/O THE NIGHT. CALL LIGHT IN REACH, BED IN LOWEST POSTION, WILL CONTINUE TO MONITOR UNTIL DAYSHIFT NURSE ARRIVES.
--- NOTE | 2019-07-19 09:21 | NUR ---
CT delay According to Liz from CT dept, CT was delayed d/t no IV access because pt pulled. Pt also does not have any repeated chem or basic metabolic panel. Discussed with Dr. John RE the delay, will put in orders.
[2019-07-19 09:56] LABS: BASOPHILS ABSOLUTE AUTO 0.02 K/mm3 (0.00-0.23); BASOPHILS PERCENT AUTO 0 % (0-2); EOSINOPHILS ABSOLUTE AUTO 0.43 K/mm3 (0.00-0.68); EOSINOPHILS PERCENT AUTO 5 % (0-6); Hematocrit 31.2 % (37.0-53.0); IMMATURE GRAN ABSOLUTE AUTO 0.04 K/mm3 (0.00-0.10); IMMATURE GRAN PERCENT AUTO 0 % (0-1); LYMPHOCYTES ABSOLUTE AUTO 0.44 K/mm3 (0.84-5.20); LYMPHOCYTES PERCENT AUTO 5 % (21-46); MONOCYTES ABSOLUTE AUTO 0.86 K/mm3 (0.16-1.47); MONOCYTES PERCENT AUTO 9 % (4-13); Mean Corpuscular HGB 31.6 pg (26.0-34.0); Mean Corpuscular HGB Conc 32.1 g/dL (31.5-36.5); Mean Corpuscular Volume 99 fL (80-100); Mean Platelet Volume 11.5 fL (9.1-12.4); NEUTROPHILS ABSOLUTE AUTO 7.74 K/mm3 (1.96-9.15); NEUTROPHILS PERCENT AUTO 81 % (41-73); Platelet Count 107 K/mm3 (150-400); RDW Coefficient Variation 15.3 % (11.7-14.2); RDW Standard Deviation 55.8 fL (35.1-46.3); Red Blood Cell Count 3.16 M/mm3 (4.30-5.90); White Blood Cell Count 9.53 K/mm3 (4.00-11.30)
[2019-07-19 10:10] LABS: International Normalized Ratio 1.32; Prothrombin Time Results 13.9 Sec (9.7-11.5)
[2019-07-19 10:14] LABS: Alanine Aminotransfer (ALT/SGP 206 U/L (12-78); Albumin, Blood 2.5 g/dL (3.4-5.0); Albumin/Globulin Ratio 0.9 (0.8-1.8); Alk Phos 904 U/L (50-136); Anion Gap 5 mmol/L (6-16); Aspartate Aminotrans (AST/SGOT 651 U/L (12-37); Bilirubin, Total 1.8 mg/dL (0.1-1.0); Blood Urea Nitrogen 17 mg/dL (8-24); Bun/Creatinine Ratio 23.2 (12.0-20.0); CO2, Blood 29 mmol/L (21-32); Calcium, Blood 7.7 mg/dL (8.5-10.1); Chloride, Blood 103 mmol/L (98-108); Creatinine, Blood 0.73 mg/dL (0.60-1.20); Globulin, Blood 2.9 g/dL (2.2-4.0); Glomerular Filtration Rate >60 (60-); Glucose, Blood 84 mg/dL (70-99); Potassium, Blood 4.3 mmol/L (3.5-5.5); Sodium, Blood 137 mmol/L (136-145); Total Protein, Blood 5.4 g/dL (6.4-8.2)
[2019-07-19 10:19] LABS: Cancer Antigen 19-9 45.4 U/mL (2.0-37.0)
[2019-07-19 10:34] LABS: Alpha Feto Protein, Tumor Mkr 3615.8 ng/mL (0.0-8.0)
--- NOTE | 2019-07-19 13:11 | NUR ---
Brief Pt visit this afternoon. Pt resting in bed and is A&OX3. Pt unable to verbalize appropriate reason for hospital stay. He states he is here for pneumonia. Engaged in therapeutic discussion regarding plan of care. Offered therapeutic listening to allow Pt to express concerns and fears. Pt closes his eyes during conversation and quits speaking. Pt remains with his eyes closed. Left room and after a few minutes this RN could hear Pt speaking to himself. Spoke with Bedside RN Sujatha and discussed case. Palliative Care will F/U with Pt at a later time. During conversation this RN requested permission from Pt to contact family. Pt denied request.
--- NOTE | 2019-07-19 15:30 | NUR ---
Continuous Inf of NS Patient tolerating PO liquid intake well. Per Dr. Trotter, d/c continuous infusion of NS.
--- NOTE | 2019-07-19 18:11 | NUR ---
Shift Summary A/Ox3 with intermittent confusion. Patient used the urinal and did not open the urinal before using it therefore accidentally soiled his boxers. Patient then stated he needed new "batteries" and then attempted to correct himself stating he meant "socks". When this RN asked patient to clarify what he meant to say and if it was a new boxer he wanted, patient giggled and said "Yes." Mentation has declined throughout the day, medicated for pain x 1 per EMAR. Patient has not requested for more pain meds. This evening, patient dangled at side of bed for about 10 minutes and tele monitor called stating patient is runny ST at 112 bpm. Patient was assisted to lie down, vitals were taken, and radial pulse checked to be 70's. Patient is now resting in bed, bed alarm on for safety d/t moments of confusion. Does not use call light appropriately. Will continue to monitor.
[2019-07-19 21:08] LABS: VARICELLA ZOSTER IGG 1301 index (Immune >165)
--- NOTE | 2019-07-19 22:01 | NUR ---
PT T/F TO ROOM 347 AT 2150. RECIEVED REPORT FROM DM ZELAYA.
--- NOTE | 2019-07-19 22:30 | NUR ---
THIS RN AGREES W/SHIFT ASSESSMENT COMPLETED BY PREVIOUS RN. PT IS VERY LETHARGIC. ATTEMPTS TO OPEN EYES ON COMMAND. ATTEMPTS TO ANSWER QUESTIONS. SPEECH IS MUMBLED AND QUIET AND VERY DIFFICULT TO UNDERSTAND. VSS. AFEB. 02 SATS 94% ON 4L. PT LEAVING NC ON AT THIS TIME. IV TO RUE SALINE LOCKED. PT LEAVING TELE LEADS ON. BED ALARN ON, CALL BUTTON IN REACH. BED LOW. WILL CONT TO MONITOR.
--- NOTE | 2019-07-20 05:05 | NUR ---
SHIFT SUMMARY: VSS. AFEB. 02 SAT 94-95% ON 4L VIA NC. PT WOKE UP AROUND 0300 MUCH MORE ALERT. COMMUNICATING NEEDS CLEARLY. CONT TO BE CONFUSED AND IMPULSIVE. SET BED ALARM OFF X 1 WHEN ATTEMPTING TO SELF AMB TO THE BATHROOM. GAIT IS VERY UNSTEADY. PT UNAWARE OF LIMITATIONS. KEPT 02 NC ON DURING THE NIGHT. SPILLS DRINKS WHEN MANAGING CUP INDEPENDENTLY. NO C/O ABD PAIN SO FAR TONIGHT. TELE SHOWING SINUS RHYTHM W/HR 87. CALL BUTTON EXPLAINED AND IN REACH. BED LOW, BED ALARM ON.
[2019-07-20 08:07] LABS: HIV SCREEN 4TH GENERATION WRFX Non Reactive (Non Reactive)
--- NOTE | 2019-07-20 11:26 | NUR ---
Pt resting in bed and denies pain. Pt appears more lethargic compared to previous visit. Pt's and son at bedside. Engaged in therapeutic conversation regarding Pt's goals and wishes. Family is in agreement of Pt's wishes. Discussed prognosis and philosophy of comfort care. Discussed option for hospice if Pt does not become imminent during hospital stay. Son and are requesting hospice at home and not at facility. Son reports he can provide the care the Pt needs at home. Educated on the care needed including 24 hour care with V/U made by family. Son is tearful at times and offered emotional support. Provided hospice brochures for agencies that service their area. No other concerns reported at this time. Called and spoke with facility nurse Nanette per request from family and provided update with request for family to fruit or nut picker some of Pt's belongings. Nanette reports belongings will be ready for fruit or nut picker. Palliative Care will remain available for symptom management and supportive visits.
--- NOTE | 2019-07-20 12:01 | NUR ---
Pt resting in bed and appears comfortable. Discussed NOK and emergency contact people. Pt reports having children but have not spoken with them in a long time. Inquired reasoning for this with Pt responding by stating "I've listed an emergency field contact person and that's good enough". Confirmed person listed as Marybel with Pt stating "yes". Spoke with Pt's bedside RN Diana and discussed case. Discussed concerns of Pt's appropriatness and level of understanding. Called and spoke with Dr Trotter. Dr Trotter reports goals of care are appropriate to discuss after Dr John's visit with Pt. Dr John would like to discuss with Pt results of testing and imaging. Palliative Care will remain available and will F/U with Pt for goals of care.
--- NOTE | 2019-07-20 13:24 | NUR ---
HE HAS SOME CONFUSION WITH THE PHONE, THE CALL LIGHT AND TV CONTROL, AND HIS BEDSIDE DRINKS. APPETITE POOR. NO NAUSEA. OXYCODONE GIVEN X1 SO FAR FOR ABD PAIN. AWAITING TO ROUND AND DISCUSS THE CT FINDINGS WITH HIM. HE SAYS HE DOES NOT COMMUNICATE WITH HIS FAMILY. HE DID NOT KNOW OR WANT TO GIVE ANY NEXT OF KIN INFO. TO THE PALLIATIVE CARE NURSE.
--- NOTE | 2019-07-20 15:02 | NUR ---
HE CONTINUES TO HAVE TROUBLE WITH THE TV REMOTE, ASKING FOR HELP EACH TIME WE ARE IN THE ROOM. HE IS AWARE THAT HE IS HAVING TOO MUCH DIFFICULTY WITH IT. I OFFERED HIM OXYCODONE WITH HIS AFTERNOON DOSE OF GABAPENTIN. HE SAID YES. HE SAID HIS RT ABD PAIN IS A 7. WILL ENCOURAGE HIM TO GET OOB INTO A CHAIR THIS AFTERNOON. HE ALSO JUST ASKED FOR A NEBULIZER TREATMENT BUT DIDN'T KNOW WHAT TO CALL IT. "THE THING FOR MY LUNGS". HAS NOT BEEN HERE YET TODAY. HE HAS NOT ASKED ABOUT HIS CT SCAN AT ALL.
--- NOTE | 2019-07-20 16:02 | NUR ---
HE IS ON THE PHONE WITH HIS FRIEND REZNO NOW AFTER JUST CONFERENCED WITH HIM. HE WAS TOLD ABOUT HIS METASTATIC CANCER AND THE PROBABILITY OF NO EFFECTIVE SAFE TREATMENT AVAILABLE TO HIM. THE PALLIATIVE CARE NURSE WAS ALSO PRESENT. A PALLIATIVE CARE NURSE WILL NOT SEE PATIENT AGAIN UNTIL ALSO CONFERENCES WITH THE PATIENT. A CONSULT WILL BE ORDERED FOR HIM.
--- NOTE | 2019-07-20 16:56 | NUR ---
F/U visit with Dr John. Dr John discusses results and educates Pt of findings. Dr John answeres questions and discusses concerns. Plan is for Dr John to place consult order for Dr Salazar. Discussed case with Bedside RN Diana. Plan is for Palliative Care to F/U with Pt after Dr Salazar consults and discusses options.
--- NOTE | 2019-07-20 17:30 | NUR ---
HE IS CURRENTLY DOZING IN THE RECLINER CHAIR. HE IS CALM AND PLEASANT. HE REMAINS CONFUSED BY THE TV CONTROL AND THE BEDSIDE TELEPHONE. CONFERENCED WITH HIM. DR.WEESE HEATON WILL BE CALLED TOMORROW AM. CHARLIE TALKED TO HIS FRIEND RENZO ON THE PHONE AFTER RELATED THE CT SCAN RESULTS TO HIM. HE HAS HAD OXYCODONE X2 THIS SHIFT FOR ABD PAIN. HE SAYS IT MANAGES HIS PAIN.
--- NOTE | 2019-07-21 04:58 | NUR ---
SHIFT SUMMARY- PT. CONFUSED, PLEASANT, AND COOPERATIVE WITH CARE. PT. HAS HAD A RESTFUL NIGHT. NO APPARENT DISTRESS NOTED. ON 3L NC. PT. NOTED TO HAVE PALPABLE MASS ON THE RUQ. DENIED ANY C/O ABD PAIN THIS SHIFT. CONSULT CALLED TO DR. MENDOZA THIS AM. PT. CONT/INCONT OF URINE. ATTEMPTS TO USE URINAL BUT AT TIMES WETS THE BED. NO ACUTE CHANGES TO CONDITION, VSS. CALL LIGHT WITHIN REACH, SIDE RAILS UP X2, AND BED ALARM ON. WILL CONT TO MONITOR.
--- NOTE | 2019-07-21 18:38 | NUR ---
SHIFT SUMMARY. ALERT, ORIENTATED TO SELF, PLACE AND YEAR. PLEASANT AND COOPERATIVE. PT REPORTS INTERMITTENT SOB, LUNGS CLEAR, CONTINUES WITH 3L O2 NC. PT REPORTS ABD PAIN ONCE THIS SHIFT, PAIN MANAGED WELL WITH CURRENT ORDERS AT THIS TIME. NO N/V. POOR PO INTAKE. DR. MENDOZA CONSULTED TODAY. PALLIATIVE IN TO SEE PT, CODE STATUS CHANGED FROM FULL CODE TO DNR. NO OTHER CHANGES OR CONCERNS.
--- NOTE | 2019-07-21 18:46 | NUR ---
Comfort Measures/Hospice Decision: Pt is alert, oriented to place, situation. Reviewed what providers have told him. He demonstrates understanding of cancer diagnosis and relates to me that there is "nothing to be done about it." Reviewed hospice and he is agreeable to this. He is also agreeable to start comfort measures while in the hospital and change his code status to DNR/DNI. Pt wants to go home and states that he has friends that will help take care of him. Call placed to Marybel, pt's friend and listed contact. He has been speaking to her and updating her, although Marybel states that he sometimes falls asleep on the phone with her. Marybel is welcome to having him in her home for his end of life process. She has a bed and breakfast. She will talk to him about moving his trailer over to her house and park it in the driveway. She has had previous caregiver experience and feels very comfortable doing this for Regan now. Hospice referal placed for care managers to start coordinating discharge.
--- NOTE | 2019-07-21 20:09 | NUR ---
PT. ALERT, RESTING COMFORTABLY IN BED. NO APPARENT DISTRESS NOTED. DENIES ANY NEEDS AT THIS TIME. CALL LIGHT WITHIN REACH AND SIDE RAILS UP X2. WILL CONT TO MONITOR.
--- NOTE | 2019-07-22 05:10 | NUR ---
SHIFT SUMMARY- PT. PLACED ON COMFORT CARE. SLEPT T/O MOST OF THE NIGHT. REPORTED PAIN 1X THIS SHIFT, MEDICATED PER EMAR. PT. HAS POOR APPETITE, BUT DRINKING LOTS OF FLUIDS DURING THE NIGHT. REPOSITIONED FOR COMFORT PRN. PT. IS ABLE TO MOVE AROUND IN BED HIMSELF, BUT STILL VERY WEAK. APPEARED TO BE RESTING COMFORTABLY IN BED, NO APPARENT DISTRESS NOTED. CALL LIGHT WITHIN REACH, SIDE RAILS UP X2, AND BED ALARM ON FOR SAFETY. WILL CONT TO MONITOR.
--- NOTE | 2019-07-22 09:38 | NUR ---
Pt resting in bed with his eyes closed upon arrival. Pt does not open his eyes with verbal stimuli. Pt appears comfortable with no S/S of distress at this time. Spoke with Bedside RN Mickey and discussed case. Spoke with [facility] Liacee Barger, discussed case and plan. Plan for Pt to possibly D/C to his friend Marybel's home this afternoon with [facility] to admit onto services tomorrow morning. Palliative Care will remain available.
[2019-07-22] MEDS ORDERED: METO25ER PO (14:57)
[2019-07-22] MEDS ORDERED: MORP20L SL (14:58)
[2019-07-22] MEDS ORDERED: Ativan1 MG PO (14:59)
--- NOTE | 2019-07-22 16:19 | NUR ---
Spiritual care note: Per RN, pt is sleepy and irritable when awakened. I did not disturb. I will remain available.
--- NOTE | 2019-07-22 17:03 | NUR ---
SHIFT SUMMARY. 1600 PT HAS NEW ONSET OF SMALL AMOUNT OF BRIGHT RED LAXMI BLOOD FROM HIS PENIS/URETHRA. DR. ANGULO NOTIFIED, HE REPORTED THAT IF THE CAREGIVER DID NOT FEEL COMFORTABLE TAKING THE PT HOME TONIGHT WITH THIS NEW SYMPTOM THEN WE MAY HOLD THE D/C TILL TOMORROW WHEN HOSPICE CAN ADMIT HIM. SPOKE WITH RENZO, WHO IS GOING TO BE THE PT CAREGIVER, SHE REPORTED THAT SHE DID NOT HAVE GLOVES, BRIEFS, OR CHUCKS. RENZO REPORTED THAT SHE WILL PICK THE PT UP AT 0800 TOMORROW AND WILL THEN BE ABLE TO HAVE THE SUPPLIES PROVIDED BY HOSPICE. HOSPICE IS TO CALL RENZO AT 0830 TOMORROW TO SET UP TIME FOR ADMIT TO HOSPICE PER TECHNICAL SALES REPRESENTATIVE. RENZO REPORTED THAT BED HAD BEEN DELIVERED. PT HAS RESTED COMFORTABLY ALL SHIFT, PAIN MANAGED WELL WITH CURRENT ORDERS. NO S/SX OF DISTRESS OR DISCOMFORT.
--- NOTE | 2019-07-23 05:42 | NUR ---
SHIFT SUMMARY- NO ACUTE CHANGES OVERNIGHT. PLAN FOR D/C TO FRIEND'S HOME ON HOSPICE THIS AM. MEDICATED FOR PAIN SEVERAL TIMES T/O THE NIGHT WITH GOOD EFFECT. PT. APPEARED TO HAVE RESTED COMFORTABLY T/O THE SHIFT. CALL LIGHT WITHIN REACH, SIDE RAILS UP X2, AND BED ALARM ON. WILL CONT TO MONITOR.
--- NOTE | 2019-07-23 09:13 | NUR ---
SUMMARY/DISCHARGE PT DISCHARGED TO HOME WITH HOSPICE, CAREGIVER HERE JUST AFTER 8 AM, PT DRESSED AND PACKED, HOME MEDS OBTAINED FROM THE PHARMACY, OXYGEN TANK IS HERE, PT TAKEN DOWN VIA WHEELCHAIR
== END 2019-07-23 08:10 | disposition hospice, home (50) | DRG 435 ==
LOC: ER 15:00 → MEDS 22:54
PROVIDERS: Emergency Medicine; Internal Medicine; Internal Medicine Gastroenterology; ADMIT Internal Medicine
DX: C78.7 Secondary malignant neoplasm of liver and intrahepatic bile duct (principal); I50.41 Acute combined systolic (congestive) and diastolic (congestive) heart failure; N17.9 Acute kidney failure, unspecified; C15.9 Malignant neoplasm of esophagus, unspecified; I42.8 Other cardiomyopathies; R64 Cachexia; J44.9 Chronic obstructive pulmonary disease, unspecified; Z51.5 Encounter for palliative care; E78.5 Hyperlipidemia, unspecified; H91.93 Unspecified hearing loss, bilateral; N40.0 Benign prostatic hyperplasia without lower urinary tract symptoms; F17.210 Nicotine dependence, cigarettes, uncomplicated; Z79.4 Long term (current) use of insulin; Z99.81 Dependence on supplemental oxygen; F43.10 Post-traumatic stress disorder, unspecified; R16.0 Hepatomegaly, not elsewhere classified; K21.9 Gastro-esophageal reflux disease without esophagitis; K80.20 Calculus of gallbladder without cholecystitis without obstruction; I48.0 Paroxysmal atrial fibrillation; G89.4 Chronic pain syndrome; I11.0 Hypertensive heart disease with heart failure; W19.XXXA Unspecified fall, initial encounter; Y92.9 Unspecified place or not applicable; Z68.20 Body mass index [BMI] 20.0-20.9, adult
CPT/HCPCS: 36415; 71046; 71100; 74170; 74176; 76705; 80053; 80074; 81003; 82105; 83516; 83605; 83690; 83880; 84145; 84484; 85025; 85610; 86038; 86301; 86317; 86644; 86645; 86694; 86704; 86708; 86787; 86803; 87040; 87340; 87389; 87902; 93005; 93010; 93306; 93971; 94640; 94760; 96361; 96365; 96366; 96375; 99285-25; A9270-GY; J1170; J2543; J3010; J7030; J7512; Q9967